=== PATIENT | female | born 1980 | race Caucasian/White ===

== ENCOUNTER 2017-03-02 06:13 | Day surgery (SDC) | payer BC ==
--- NOTE | 2017-02-26 08:35 | PDGENHP ---
History and Physical - Chief Complaint Left Hip Pain - History of Present Illness . ~~Bilateral~Hip Dyplasia (Right BL); Left more symptomatic 2. ~~History of bilateral hip arthroscopy 3. 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 She~lives in [place], [place]. 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 ~She~is ; she~has 4~children. ~Sally enjoys camping, fishing, and running. Yee's bilateral~hip pain (L>R)~started November 2015, with no~recalled trauma or injury, and with no~previous complaints.~Sallyhas~a known history of hip dysplasia. Left hip arthroscopy: January 312015 (Dr. Borjas in [place], [place]) Right hip arthroscopy: Jul 112015 In October 2016 she had a contrast MRI of left hip which apparently showed labral tear. (We do not have this study at this time) Presentation today is of~anterior, posterior bilateral~hip pain. ~The hip does~ wake her~at night and does~click and catch on her. Sitting can be uncomfortable~ for her. Sallydoes~report suffering from lower back pain episodes, history of sciolosis. Sallyhas~participated in physical therapy and has~tried other conservative measures including cortisone hip injections (worked for 20 minutes only) . She~ has not~received sufficient symptomatic improvement. Sallyhas~utilized medication for pain management, including NSAID and Vicodin. Sallyhas used medication for since the pain started. Sallyunderstands that she~has a hip and pelvis problem which should be researched and wishes to get a better understanding of her~hip status, followed by an establishment of a treatment strategy, hoping sheLaurawould be able to get back to her~well being active life. History: Past medical history: ~ scioliosis Relevant familial history: Older sister was born with hip dysplasia ~~~~~~~~~~~~~~~~~~~~~~~~~~~~~~~~~~~~Older sister with scioliosis Past surgical history: No. Surgery Anesthesia 1 Tubal ligation general 2 Hip arthroscopies x2 General Yee~denies problematic issues with general anesthesia in the past. I have reviewed, verified and agree with the past medical, surgical, family and social history. Current Medications:~currently has no medications in their medication list. ALLERGIES:~has No Known Allergies. Objective: Physical Examination: Sallyis 5~feet 7~inches tall and weighs~116~Lbs. Sallyis AAO x3; she~is well- nourished, in NAD. Skin is warm and dry. ~Breathing is non-labored. ~CV with RRR by pulse. Abdomen is soft, NTND. Currently, she~walks with a abnormal antalgic gait favoring the right side. Trendelenburg sign is positive bilaterally and proprioception~is was not taken secondary to increased pain. She~presents~with no~signs of joint laxity.~Beightons Score: 0 She~is fit looking. ~~ Lower spine examination is negative~for sciatic or femoral nerve irritation with negative~SLR &~femoral stretch tests. Range of motion of the spine is normal~for flexion, extension, and rotations, with no~associated pain. Strength, Sensation and pulses are normal - bilaterally Ankles and knees exams are normal~and no~mal-alignment is evident. She~has~right~.5~cm short leg length discrepancy. Thigh circumference is symmetric~with intermediate~muscle atrophy~on left~side. Hip ROM (degrees): FL ER At 90~hip FL IR At 90~hip FL AB AD EX IR Neutral hip ER Neutral hip R 110 (pain) 45 (pain) 35 (pain) 40 (pain) 10 5 ~(pain) 50 30 L 110 ~(pain) 50 ~(pain) 40 (pain) 35 ~(pain) 10 5 (pain) 60 20 Specific hip and pelvis tests: Quadrant LUZ Roll Add. Longus R +++ +++ negative Negative L +++ +++ +++ Negative Glut. Med ITB Pos. Imp R Negative 5/5 strength Negative 5/5 strength Negative L +++ 4+/5 strength Negative 5/5 strength Negative Squeeze test measured normal Bony Symphysis pubis is pain free~to touch while concentric activity of the rectus abdominis, does not~produce pain at its insertion. Ilio Psos specific tests are negative for pain during cycling for both hips~ without snap bilaterally HF has no pain but is weak bilaterally Left lateral~capsule tenderness Greater trochanteric burse is pain free~on both hips. Piriformis tests: FAIR is negative, with no~local signs of neuritis related to sciatic nerve. SIJs examination is produces pain on left side. Unable to assess~LUZ for SIJ pain secondary to pain. Hamstrings tests are negative~functional contraction and negative~tendinopathy both hips~(weak) On a daily basis, the following percentages reflect Yee's overall total pain: Deep hip: 80% SIJ 15%: Lateral Capsule 5% Imaging: Radiology studies which I~have personally reviewed, analyzed and measured are below: XR: AP of the hip and pelvis: Performed in a good~technique Coccyx to pubic symphysis distance 3.5~cm. 0 degrees [place]~Lines are preserved. Minimal~Pathological signs are seen in the Symphysis Pubis. Minimal~Pathological signs are seen at the Ischial~tuberosity. ~ Specific measurements show: NSA~ LCE Sourcil~Angle Sharp's angle Lat. Cam Lat. Pincer C.Over~sign Head~Coverage % ATDmm R N 25 2 41 - - 12-2 79 N L N 18 7 43 - - 12-2 67 N Pos. wall sign ISS NAD ~~Dysplasia Comments R Negative Negative 11.2~mm + L ++ + 8.0~mm ++ Sclerosis Sup. Lat. OA Cysts Joint Space-WBZ Joint Space-Medial R Negative Negative Negative 3.6~mm 3.3~mm L Negative Negative Negative 3.4~mm 4.0~mm X Table lateral: Anterior cam lesion is not seen~on both hips. Alpha Angle: ~ Right 42~dergrees Left 46~degrees CT: Right hip: Lateral center edge angle: 25 degrees Anterior center edge angle: 62 degrees [place] acetabular version angle: 15 degrees anteverted. Cranial acetabular version angle: 0 degrees . 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 Cranial acetabular version angle: 3 degrees retroverted. Femoral neck shaft angle: 134 degrees Femoral shaft torsion angle: Medialized 28 degrees Impression and plan:~ Sallyis a 36 y.o.~active female~suffering from symptomatic bilateral~hip pain due to Bilateral~Hip Dyplasia~causing significant disability to her~and altering ~her~sport and life activities. Physical examination, imaging, and her~story correspond with the diagnosis mentioned above. I explained that hip dysplasia is a condition wherein the hip joint has excessive play~and instability due to a variety of factors, including the depth and adequacy of the socket, the orientation of the femur bone, and ligament laxity around the hip joint. Dysplasia ranges in severity from borderline to citlaly, with treatment options being specific to the specific nature of the problem. Left untreated, the instability in the hip joint can cause progressive tearing of the labrum and deterioration of the surface cartilage, ultimately resulting in progressive osteoarthritis of the hip. I explained that femoroacetabular impingement (LENNOX - Cam type) arises due to a bony or soft tissue conflict between the femur (ball) and acetabulum (socket) caused by an abnormality in the shape of the femoral head and neck. Over time, repetitive impingement can result in damage to the labrum and adjacent surface cartilage within the socket, ultimately giving rise to progressive osteoarthritis of the hip. I explained that although a labral tear can be a source of pain, it is rarely the root of the problem and typically occurs secondary to an underlying abnormality in the shape and mechanics of the hip joint. I reviewed conservative treatment options for Dysplasia and LENNOX including activity modification to avoid positions of impingement or instability, physical therapy, non-steroidal anti-inflammatory medications, and various injections (corticosteroid and PRP) aimed at reducing inflammation in the hip joint or/and preventing dynamic instability and impingement. PRP injections may promote healing and reduce symptoms in certain cases but it will not repair chronically damaged tissue. Although these measures may help to buy time~and reduce current level of symptoms, they are not a definitive solution to the problem given the underlying abnormality in the shape of the hip joint. Patients who have failed conservative management and continue to experience symptoms are candidates for definitive surgical treatment, which may consist of hip arthroscopy alone or in combination with more invasive bony realignment procedures of the hip socket and/or femur called periacetabular osteotomy (REINALDO) or derotational femoral osteotomy (DFO). Hip arthroscopy typically includes treating the labrum with either repair or reconstruction of the torn labrum; as well as addressing the underlying abnormalities by restoring the normal shape to the hip joint. If the cartilage is damaged a Microfracture surgical procedure may also be necessary to help stimulate the growth of fibrocartilage. If a patient requires a labral reconstruction or a Microfracture, the initial rehabilitation from the surgery may take longer, but the petroleum terminal plant operator results are typically favorable. I reviewed the technical aspects of periacetabular osteotomy (REINALDO) including risks, benefits, and expected course of recovery. Yee~understands that REINALDO is an inpatient procedure carried out through two medium sized incisions on the front and back of the hip joint. The hip socket is cut, realigned, and stabilized with 2 ~3 internal screws. Risks include infection, bleeding, injury to nearby nerves or vessels, stiffness, persistent pain, instability, failure of bony healing, implant related complications, and venous thromboembolic disease. Rarely, revision surgery may be required to address these problems. Risks, potential complications, side effects and recovery from surgical procedure were discussed in length. We explained how this surgery is an open procedure, and though patients tend to do well in the long-term, it involves significant pain in the first 2-4 weeks post-op and a rather lengthy rehab.~Overall recovery takes approximately 6 ~12~months depending on the extent of damage and degree of repair. Yee~understands that she~will undergo hip arthroscopy 1 week prior to the REINALDO to address damage inside the hip joint. Yee~understands that hip arthroscopy and REINALDO are two separate procedures that are best performed one week apart, with the arthroscopy commencing first to "tighten up" any pathology evident in the hip joint (labral repair, etc.) and the REINALDO open procedure occurring 7-10 days later to realign the acetabulum. Yee~will review the info presented. In order to obtain more detailed information regarding the alignment, orientation, and shape of the bony hip and pelvis I will order a CT scan to be performed. The results of the CT scan, including femoral torsion and acetabular version measured values and 3D images, will aid me in deciding on the best treatment strategy and surgical pre-planning. In order to better evaluate the soft tissues and cartilage of the hip joint, I will order an MRI scan. Yee~will contact us if she~wishes to pursue further treatment in the future. Sallyis happy with this plan. I have also supplied her~with handouts, outlining the expected surgical treatment and rehab involved. I wish~Sallyall the best, ~~ ANSON Garcia History Information - Allergies/Home Medication List Allergies/Adverse Reactions: No Known Allergies Allergy (Unverified 01/30/17 10:07) Home Medications: Cholecalciferol Vit D3 [Vitamin D3 (*)] 1,000 units PO DAILY 01/30/17 [Last Taken Unknown] Herbals/Supplements -Info Only 1 ea PO DAILY 01/30/17 [Last Taken Unknown] Hydrocodone/Acetaminophen [[place] 5/325 (*)] 1 each PO Q4-6PRN PRN 01/30/17 [ Last Taken Unknown] Multivitamins [Multivitamin (*)] 1 each PO DAILY 01/30/17 [Last Taken Unknown] I have personally reviewed and updated: medical history - Social History Smoking Status: Never smoked
[~2017-03-02 06:13] MED LIST: ACETAMINOPHEN 500 MG TAB PO ONE; PREGABALIN 150 MG CAP PO ONE; ceFAZolin 2 GM/DEXTROSE 100 ML IV ONE
[2017-03-02] MEDS ORDERED: LIDOCAINE 1% 2 ML INJ ID PRN (06:55)
[2017-03-02] MEDS ORDERED: LR 1,000 ML IV ONE (06:55)
[2017-03-02] MEDS ORDERED: BUPIVACAINE/EPI 0.25% 30 ML SDV ONE (07:19)
[2017-03-02] MEDS ORDERED: MIDAZOLAM 2 MG/2 ML VIAL IVP ONE (07:46)
--- NOTE | 2017-03-02 07:47 | PDANEPAE ---
ANE Past Medical History - Cardiovascular History Hx Hypertension: No Hx Arrhythmias: No Hx Chest Pain: No Hx Coronary Artery / Peripheral Vascular Disease: No Hx CHF / Valvular Disease: No Hx Palpitations: No - Pulmonary History Hx COPD: No Hx Asthma/Reactive Airway Disease: No Hx Recent Upper Respiratory Infection: No Hx Oxygen in Use at Home: No Hx Sleep Apnea: No Sleep Apnea Screening Result - Last Documented: Negative - Neurologic History Hx Cerebrovascular Accident: No Hx Seizures: No Hx Dementia: No Neurologic History Comment: migraines - Endocrine History Hx Diabetes: No Hypothyroid: No Hyperthyroid: No Obesity: no - Renal History Hx Renal Disorders: No - Liver History Hx Hepatic Disorders: No - Neurological & Psychiatric Hx Hx Neurological and Psychiatric Disorders: No Neurological / Psychiatric History Comment: scoloisis. back pain due to bilat hip pain - Cancer History Hx Cancer: No - Congenital Disorder History Hx Congenital Disorders: No - GI History Hx Gastrointestinal Disorders: No - Other Health History Other Health History: labral tears. Bilat hip impingement. - Chronic Pain History Chronic Pain: No - Surgical History Prior Surgeries: T.L. 2012. L hip labrum sx . R hip 07-11-2016 ANE Review of Systems - Exercise capacity METS (RN): 4 METS ANE Patient History - Allergies Allergies/Adverse Reactions: No Known Allergies Allergy (Unverified 01/30/17 10:07) - Home Medications Home Medications: Cholecalciferol Vit D3 [Vitamin D3 (*)] 1,000 units PO DAILY 01/30/17 [Last Taken 3 Weeks Ago] Herbals/Supplements -Info Only 1 ea PO DAILY 01/30/17 [Last Taken 3 Weeks Ago] Hydrocodone/Acetaminophen [[place] 5/325 (*)] 1 each PO Q4-6PRN PRN 01/30/17 [ Last Taken 1 Day Ago] Multivitamins [Multivitamin (*)] 1 each PO DAILY 01/30/17 [Last Taken 3 Weeks Ago] - NPO status NPO Since - Liquids (Date): 03/01/17 NPO Since - Liquids (Time): 18:00 NPO Since - Solids (Date): 03/01/17 NPO Since - Solids (Time): 18:00 - Smoking Hx Smoking Status: Never smoked ANE Labs/Vital Signs - Vital Signs Blood Pressure: 106/56 Heart Rate: 69 Respiratory Rate: 18 O2 Sat (%): 97 Height: 171.45 cm Weight: 52.617 kg ANE Physical Exam - Airway Neck exam: FROM Mallampati Score: Class 1 Mouth exam: normal dental/mouth exam - Pulmonary Pulmonary: no respiratory distress - Cardiovascular Cardiovascular: regular rate and rhythym - ASA Status ASA Status: I ANE Anesthesia Plan Anesthesia Plan: general endotracheal anesthesia
[2017-03-02] MEDS ORDERED: PROPOFOL/EMULSION 500 MG/50 ML BOTTLE IV ONE (08:34)
[2017-03-02] MEDS ORDERED: fentaNYL 100 MCG/2 ML INJ ONE ×4 (08:55→12:24)
[2017-03-02] MEDS ORDERED: HYDROmorphONE/DILAUDID 2 MG/ML INJ ONE (11:00)
[2017-03-02] MEDS ORDERED: HYDROmorphONE/DILAUDID 1 MG/ML SYR ONE ×2 (12:14→12:24)
[2017-03-02] MEDS ORDERED: PROMETHAZINE HCL 25 MG/ML INJ IVP PRN (12:15)
[2017-03-02] MEDS ORDERED: HYDROCODONE/APAP 5/325 TAB PO PRN (12:15)
[2017-03-02] MEDS ORDERED: LR 500 ML IV PRN (12:15)
[2017-03-02] MEDS ORDERED: NALOXONE HCL 0.4 MG/ML INJ IVP PRN (12:15)
[2017-03-02] MEDS: HYDROmorphONE/DILAUDID 1 MG/ML SYR IVP PRN ×3 (12:17→12:34)
[2017-03-02] MEDS: fentaNYL 100 MCG/2 ML INJ IVP PRN ×3 (12:17→12:29)
[2017-03-02 12:22] VITALS: PULSE 107; O2SAT 100
[2017-03-02] MEDS ORDERED: PROMETHAZINE HCL 25 MG/ML INJ ONE (12:24)
--- NOTE | 2017-03-02 12:28 | POSTANESTH ---
Post Anesthetic Evaluation Cardiovascular Status: Normal, Stable Respiratory Status: Normal, Stable Level of Consciousness/Mental Status: Can Participate in Eval Pain Control: Inadeq, Add Tx Required Nausea/Vomiting Control: Adequate, Prn Tx Ordered Complications Possibly Related to Anesthesia: None Noted
[2017-03-02] MEDS ORDERED: DIAZEPAM 10 MG/2 ML SYR ONE (12:32)
[2017-03-02 12:56] VITALS: TEMP 97.5
[2017-03-02] MEDS ORDERED: DIAZEPAM 10 MG/2 ML SYR IVP PRN (13:24)
[2017-03-02 13:33] VITALS: RESP 10
[2017-03-02] MEDS ORDERED: HYDROCODONE/APAP 5/325 TAB ONE (13:58)
[2017-03-02 17:00] VITALS: BP 115/61
== END 2017-03-02 17:00 | disposition home or self-care (01) ==
LOC: FSGY 06:13
PROVIDERS: ATTEND Orthopaedic Surgery Sports Medicine
PROC: 0SQB4ZZ Repair Left Hip Joint, Percutaneous Endoscopic Approach (ICD-10-PCS; principal; 2017-03-02 08:15)
DX: M25.852 Other specified joint disorders, left hip (principal); Q65.89 Other specified congenital deformities of hip
CPT/HCPCS: 29914; 29916; 76001; C1769; C1713; J0171; J0690; J1170; J2250; J2550; J2704; J3010

== ENCOUNTER 2017-03-09 05:30 | Inpatient (IN) | payer BC ==
--- NOTE | 2017-03-05 09:45 | PDGENHP ---
History and Physical - Chief Complaint Left Hip Pain - History of Present Illness 1. ~~Bilateral~Hip Dyplasia (Right BL); Left more symptomatic 2. ~~History of bilateral hip arthroscopy 3. 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 She~lives in [place], [place]. 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 ~She~is ; she~has 4~children. ~Sally enjoys camping, fishing, and running. Yee's bilateral~hip pain (L>R)~started November 2015, with no~recalled trauma or injury, and with no~previous complaints.~Sallyhas~a known history of hip dysplasia. Left hip arthroscopy: January [id number] (Dr. Borjas in [place], [place]) Right hip arthroscopy: Jul 112015 In October 2016 she had a contrast MRI of left hip which apparently showed labral tear. (We do not have this study at this time) Presentation today is of~anterior, posterior bilateral~hip pain. ~The hip does~ wake her~at night and does~click and catch on her. Sitting can be uncomfortable~ for her. Sallydoes~report suffering from lower back pain episodes, history of sciolosis. Sallyhas~participated in physical therapy and has~tried other conservative measures including cortisone hip injections (worked for 20 minutes only) . She~ has not~received sufficient symptomatic improvement. Sallyhas~utilized medication for pain management, including NSAID and Vicodin. Sallyhas used medication for since the pain started. Sallyunderstands that she~has a hip and pelvis problem which should be researched and wishes to get a better understanding of her~hip status, followed by an establishment of a treatment strategy, hoping sheLaurawould be able to get back to her~well being active life. History: Past medical history: ~ scioliosis Relevant familial history: Older sister was born with hip dysplasia ~~~~~~~~~~~~~~~~~~~~~~~~~~~~~~~~~~~~Older sister with scioliosis Past surgical history: No. Surgery Anesthesia 1 Tubal ligation general 2 Hip arthroscopies x2 General Yee~denies problematic issues with general anesthesia in the past. I have reviewed, verified and agree with the past medical, surgical, family and social history. Current Medications:~currently has no medications in their medication list. ALLERGIES:~has No Known Allergies. Objective: Physical Examination: Sallyis 5~feet 7~inches tall and weighs~116~Lbs. Sallyis AAO x3; she~is well- nourished, in NAD. Skin is warm and dry. ~Breathing is non-labored. ~CV with RRR by pulse. Abdomen is soft, NTND. Currently, she~walks with a abnormal antalgic gait favoring the right side. Trendelenburg sign is positive bilaterally and proprioception~is was not taken secondary to increased pain. She~presents~with no~signs of joint laxity.~Beightons Score: 0 She~is fit looking. ~~ Lower spine examination is negative~for sciatic or femoral nerve irritation with negative~SLR &~femoral stretch tests. Range of motion of the spine is normal~for flexion, extension, and rotations, with no~associated pain. Strength, Sensation and pulses are normal - bilaterally Ankles and knees exams are normal~and no~mal-alignment is evident. She~has~right~.5~cm short leg length discrepancy. Thigh circumference is symmetric~with intermediate~muscle atrophy~on left~side. Hip ROM (degrees): FL ER At 90~hip FL IR At 90~hip FL AB AD EX IR Neutral hip ER Neutral hip R 110 (pain) 45 (pain) 35 (pain) 40 (pain) 10 5 ~(pain) 50 30 L 110 ~(pain) 50 ~(pain) 40 (pain) 35 ~(pain) 10 5 (pain) 60 20 Specific hip and pelvis tests: Quadrant LUZ Roll Add. Longus R +++ +++ negative Negative L +++ +++ +++ Negative Glut. Med ITB Pos. Imp R Negative 5/5 strength Negative 5/5 strength Negative L +++ 4+/5 strength Negative 5/5 strength Negative Squeeze test measured normal Bony Symphysis pubis is pain free~to touch while concentric activity of the rectus abdominis, does not~produce pain at its insertion. Ilio Psos specific tests are negative for pain during cycling for both hips~ without snap bilaterally HF has no pain but is weak bilaterally Left lateral~capsule tenderness Greater trochanteric burse is pain free~on both hips. Piriformis tests: FAIR is negative, with no~local signs of neuritis related to sciatic nerve. SIJs examination is produces pain on left side. Unable to assess~LUZ for SIJ pain secondary to pain. Hamstrings tests are negative~functional contraction and negative~tendinopathy both hips~(weak) On a daily basis, the following percentages reflect Yee's overall total pain: Deep hip: 80% SIJ 15%: Lateral Capsule 5% Imaging: Radiology studies which I~have personally reviewed, analyzed and measured are below: XR: AP of the hip and pelvis: Performed in a good~technique Coccyx to pubic symphysis distance 3.5~cm. 0 degrees [place]~Lines are preserved. Minimal~Pathological signs are seen in the Symphysis Pubis. Minimal~Pathological signs are seen at the Ischial~tuberosity. ~ Specific measurements show: NSA~ LCE Sourcil~Angle Sharp's angle Lat. Cam Lat. Pincer C.Over~sign Head~Coverage % ATDmm R N 25 2 41 - - 12-2 79 N L N 18 7 43 - - 12-2 67 N Pos. wall sign ISS NAD ~~Dysplasia Comments R Negative Negative 11.2~mm + L ++ + 8.0~mm ++ Sclerosis Sup. Lat. OA Cysts Joint Space-WBZ Joint Space-Medial R Negative Negative Negative 3.6~mm 3.3~mm L Negative Negative Negative 3.4~mm 4.0~mm X Table lateral: Anterior cam lesion is not seen~on both hips. Alpha Angle: ~ Right 42~dergrees Left 46~degrees CT: Right hip: Lateral center edge angle: 25 degrees Anterior center edge angle: 62 degrees [place] acetabular version angle: 15 degrees anteverted. Cranial acetabular version angle: 0 degrees . 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 Cranial acetabular version angle: 3 degrees retroverted. Femoral neck shaft angle: 134 degrees Femoral shaft torsion angle: Medialized 28 degrees Impression and plan:~ Sallyis a 36 y.o.~active female~suffering from symptomatic bilateral~hip pain due to Bilateral~Hip Dyplasia~causing significant disability to her~and altering ~her~sport and life activities. Physical examination, imaging, and her~story correspond with the diagnosis mentioned above. I explained that hip dysplasia is a condition wherein the hip joint has excessive play~and instability due to a variety of factors, including the depth and adequacy of the socket, the orientation of the femur bone, and ligament laxity around the hip joint. Dysplasia ranges in severity from borderline to citlaly, with treatment options being specific to the specific nature of the problem. Left untreated, the instability in the hip joint can cause progressive tearing of the labrum and deterioration of the surface cartilage, ultimately resulting in progressive osteoarthritis of the hip. I explained that femoroacetabular impingement (LENNOX - Cam type) arises due to a bony or soft tissue conflict between the femur (ball) and acetabulum (socket) caused by an abnormality in the shape of the femoral head and neck. Over time, repetitive impingement can result in damage to the labrum and adjacent surface cartilage within the socket, ultimately giving rise to progressive osteoarthritis of the hip. I explained that although a labral tear can be a source of pain, it is rarely the root of the problem and typically occurs secondary to an underlying abnormality in the shape and mechanics of the hip joint. I reviewed conservative treatment options for Dysplasia and LENNOX including activity modification to avoid positions of impingement or instability, physical therapy, non-steroidal anti-inflammatory medications, and various injections (corticosteroid and PRP) aimed at reducing inflammation in the hip joint or/and preventing dynamic instability and impingement. PRP injections may promote healing and reduce symptoms in certain cases but it will not repair chronically damaged tissue. Although these measures may help to buy time~and reduce current level of symptoms, they are not a definitive solution to the problem given the underlying abnormality in the shape of the hip joint. Patients who have failed conservative management and continue to experience symptoms are candidates for definitive surgical treatment, which may consist of hip arthroscopy alone or in combination with more invasive bony realignment procedures of the hip socket and/or femur called periacetabular osteotomy (REINALDO) or derotational femoral osteotomy (DFO). Hip arthroscopy typically includes treating the labrum with either repair or reconstruction of the torn labrum; as well as addressing the underlying abnormalities by restoring the normal shape to the hip joint. If the cartilage is damaged a Microfracture surgical procedure may also be necessary to help stimulate the growth of fibrocartilage. If a patient requires a labral reconstruction or a Microfracture, the initial rehabilitation from the surgery may take longer, but the intermodal dispatcher results are typically favorable. I reviewed the technical aspects of periacetabular osteotomy (REINALDO) including risks, benefits, and expected course of recovery. Yee~understands that REINALDO is an inpatient procedure carried out through two medium sized incisions on the front and back of the hip joint. The hip socket is cut, realigned, and stabilized with 2 ~3 internal screws. Risks include infection, bleeding, injury to nearby nerves or vessels, stiffness, persistent pain, instability, failure of bony healing, implant related complications, and venous thromboembolic disease. Rarely, revision surgery may be required to address these problems. Risks, potential complications, side effects and recovery from surgical procedure were discussed in length. We explained how this surgery is an open procedure, and though patients tend to do well in the long-term, it involves significant pain in the first 2-4 weeks post-op and a rather lengthy rehab.~Overall recovery takes approximately 6 ~12~months depending on the extent of damage and degree of repair. Yee~understands that she~will undergo hip arthroscopy 1 week prior to the REINALDO to address damage inside the hip joint. Yee~understands that hip arthroscopy and REINALDO are two separate procedures that are best performed one week apart, with the arthroscopy commencing first to "tighten up" any pathology evident in the hip joint (labral repair, etc.) and the REINALDO open procedure occurring 7-10 days later to realign the acetabulum. Yee~will review the info presented. In order to obtain more detailed information regarding the alignment, orientation, and shape of the bony hip and pelvis I will order a CT scan to be performed. The results of the CT scan, including femoral torsion and acetabular version measured values and 3D images, will aid me in deciding on the best treatment strategy and surgical pre-planning. In order to better evaluate the soft tissues and cartilage of the hip joint, I will order an MRI scan. Yee~will contact us if she~wishes to pursue further treatment in the future. Sallyis happy with this plan. I have also supplied her~with handouts, outlining the expected surgical treatment and rehab involved. I wish~Sallyall the best, ~~ ANSON Garcia History Information - Allergies/Home Medication List Allergies/Adverse Reactions: No Known Allergies Allergy (Unverified 01/30/17 10:07) Home Medications: Cholecalciferol Vit D3 [Vitamin D3 (*)] 1,000 units PO DAILY 01/30/17 [Last Taken 3 Weeks Ago] Herbals/Supplements -Info Only 1 ea PO DAILY 01/30/17 [Last Taken 3 Weeks Ago] Multivitamins [Multivitamin (*)] 1 each PO DAILY 01/30/17 [Last Taken 3 Weeks Ago] DIAZEPAM 03/04/17 [Last Taken Unknown] NAPROXEN SODIUM 03/04/17 [Last Taken Unknown] Percocet 5-325 mg Tablet 03/04/17 [Last Taken Unknown] I have personally reviewed and updated: medical history - Social History Smoking Status: Never smoked
[2017-03-09] MEDS ORDERED: TRANEXAMIC ACID 1,000 MG in NS 100 ML IV ONE (06:00)
[2017-03-09] MEDS ORDERED: SCOPOLAMINE HYDROBROMIDE 1.5 MG PATCH TD ONE (06:01)
[2017-03-09] MEDS ORDERED: PREGABALIN 150 MG CAP PO ONE (06:01)
[2017-03-09] MEDS ORDERED: ceFAZolin 2 GM/DEXTROSE 100 ML IV ONE (06:01)
[2017-03-09] MEDS ORDERED: ACETAMINOPHEN 500 MG TAB PO ONE (06:01)
[2017-03-09] MEDS ORDERED: LIDOCAINE 1% 2 ML INJ ID PRN (06:05)
[2017-03-09] MEDS ORDERED: LR 1,000 ML IV ONE (06:05)
[2017-03-09] MEDS ORDERED: LIDOCAINE 1% 2 ML INJ ONE (06:07)
[2017-03-09] MEDS ORDERED: PREGABALIN 50 MG CAP PO ONE (06:15)
[2017-03-09] MEDS ORDERED: CITRATE DEXTROSE SOLN 500 ML BAG ONE (06:39)
[2017-03-09] MEDS ORDERED: CALCIUM CHLORIDE 1 GM/10 ML INJ ONE (07:05)
[2017-03-09] MEDS ORDERED: THROMBIN (BOVINE) 5,000 UNIT VIAL TP ONE (07:05)
[2017-03-09] MEDS ORDERED: PROPOFOL/EMULSION 500 MG/50 ML BOTTLE IV ONE ×2 (07:10→08:56)
[2017-03-09] MEDS ORDERED: METOCLOPRAMIDE 10 MG/2 ML VIAL ONE (07:10)
[2017-03-09] MEDS ORDERED: ROCURONIUM 100 MG/10 ML VIAL ONE (07:10)
[2017-03-09] MEDS ORDERED: LIDOCAINE 2% 100 MG/5 ML SYR ONE (07:10)
[2017-03-09] MEDS ORDERED: DEXAMETHASONE 4 MG/ML VIAL ONE ×2 (07:10)
[2017-03-09] MEDS ORDERED: MIDAZOLAM 2 MG/2 ML VIAL ONE (07:11)
--- NOTE | 2017-03-09 08:22 | PDANEPAE ---
ANE Past Medical History - Cardiovascular History Hx Hypertension: No Hx Arrhythmias: No Hx Chest Pain: No Hx Coronary Artery / Peripheral Vascular Disease: No Hx CHF / Valvular Disease: No Hx Palpitations: No - Pulmonary History Hx COPD: No Hx Asthma/Reactive Airway Disease: No Hx Recent Upper Respiratory Infection: No Hx Oxygen in Use at Home: No Hx Sleep Apnea: No Sleep Apnea Screening Result - Last Documented: Negative - Neurologic History Hx Cerebrovascular Accident: No Hx Seizures: No Hx Dementia: No Neurologic History Comment: migraines - Endocrine History Hx Diabetes: No - Renal History Hx Renal Disorders: No - Liver History Hx Hepatic Disorders: No - Neurological & Psychiatric Hx Hx Neurological and Psychiatric Disorders: No Neurological / Psychiatric History Comment: scoloisis. back pain due to bilat hip pain - Cancer History Hx Cancer: No - Congenital Disorder History Hx Congenital Disorders: No - GI History Hx Gastrointestinal Disorders: No - Other Health History Other Health History: labral tears. Bilat hip impingement. - Chronic Pain History Chronic Pain: No - Surgical History Prior Surgeries: T.L. 2011. L hip labrum sx . R hip 07-11-2016 ANE Review of Systems - Exercise capacity METS (RN): 4 METS ANE Patient History - Allergies Allergies/Adverse Reactions: No Known Allergies Allergy (Unverified 01/30/17 10:07) - Home Medications Home Medications: Cholecalciferol Vit D3 [Vitamin D3 (*)] 1,000 units PO DAILY 01/30/17 [Last Taken 02/23/17] Herbals/Supplements -Info Only 1 ea PO DAILY 01/30/17 [Last Taken 02/23/17] Multivitamins [Multivitamin (*)] 1 each PO DAILY 01/30/17 [Last Taken 02/23/17] DIAZEPAM 03/04/17 [Last Taken 02/23/17] NAPROXEN SODIUM 03/04/17 [Last Taken 02/23/17] Percocet 5-325 mg Tablet 03/04/17 [Last Taken 02/23/17] - NPO status NPO Since - Liquids (Date): 03/08/17 NPO Since - Liquids (Time): 23:00 NPO Since - Solids (Date): 03/08/17 NPO Since - Solids (Time): 20:00 - Smoking Hx Smoking Status: Never smoked ANE Labs/Vital Signs - Vital Signs Blood Pressure: 103/67 Heart Rate: 60 Respiratory Rate: 20 O2 Sat (%): 95 Height: 171.45 cm Weight: 52.617 kg ANE Physical Exam - Airway Mallampati Score: Class 1 Mouth exam: normal dental/mouth exam - Pulmonary Pulmonary: no respiratory distress - Cardiovascular Cardiovascular: regular rate and rhythym - ASA Status ASA Status: I ANE Anesthesia Plan Anesthesia Plan: general endotracheal anesthesia, epidural (epidural placed in pre-op for POPM/PSR)
[2017-03-09] MEDS ORDERED: ONDANSETRON 4 MG/2 ML VIAL IVP PRN ×3 (09:49→12:48)
[2017-03-09] MEDS ORDERED: NARCOTIC DRIP BAG-TOTAL ALL TYPES EP PRN (09:49)
[2017-03-09] MEDS ORDERED: NALOXONE HCL 0.4 MG/ML INJ IVP PRN ×2 (09:49→12:12)
[2017-03-09] MEDS ORDERED: METOCLOPRAMIDE 10 MG/2 ML VIAL IVP PRN (09:49)
[2017-03-09] MEDS ORDERED: diphenhydrAMINE 25 MG CAP PO PRN (09:49)
[2017-03-09] MEDS ORDERED: GLYCOPYRROLATE 0.2 MG/1 ML VIAL ONE (10:47)
[2017-03-09] MEDS ORDERED: ceFAZolin 1 GM VIAL ONE (11:14)
[2017-03-09] MEDS ORDERED: MEPERIDINE 25 MG/ML SYR IVP PRN (12:12)
[2017-03-09] MEDS ORDERED: ACETAMINOPHEN 500 MG TAB PO PRN (12:12)
[2017-03-09] MEDS ORDERED: LR 500 ML IV PRN (12:12)
--- NOTE | 2017-03-09 12:14 | POSTANESTH ---
Post Anesthetic Evaluation Respiratory Status: Normal, Stable Level of Consciousness/Mental Status: Can Participate in Eval Pain Control: Adequate, Prn Tx Ordered Nausea/Vomiting Control: Adequate, Prn Tx Ordered Complications Possibly Related to Anesthesia: None Noted
[2017-03-09] MEDS ORDERED: MEPERIDINE 25 MG/ML SYR ONE (12:17)
[2017-03-09] MEDS ORDERED: fentaNYL 100 MCG/2 ML INJ ONE (12:17)
[2017-03-09] MEDS ORDERED: ceFAZolin 1 GM/5 ML SYR ONE (12:17)
[2017-03-09] MEDS: fentaNYL 100 MCG/2 ML INJ IVP PRN ×4 (12:20→13:05)
[2017-03-09] MEDS ORDERED: ONDANSETRON DISINTEGRATING 4 MG TAB PO PRN (12:48)
[2017-03-09] MEDS ORDERED: MAGNESIUM HYDROXIDE 30 ML UDCUP PO PRN (12:48)
[2017-03-09] MEDS ORDERED: LACTULOSE 20 GM/30 ML UDCUP PO PRN (12:48)
[2017-03-09] MEDS ORDERED: POLYETHYLENE GLYCOL 3350 17 GM PKT PO PRN (12:48)
[2017-03-09] MEDS ORDERED: BISACODYL 10 MG SUPP PR PRN (12:48)
[2017-03-09] MEDS ORDERED: KETOROLAC 15 MG/1 ML SDV ONE (13:04)
[2017-03-09] MEDS: KETOROLAC 15 MG/1 ML SDV IVP SCH ×2 (13:05→19:24)
[2017-03-09] MEDS ORDERED: NS 250 ML IV ONE ×2 (20:00→23:30)
[2017-03-09] MEDS ORDERED: NAPROXEN SODIUM 220 MG PO SCH (21:00)
--- NOTE | 2017-03-09 21:07 | SUROPNOTE ---
[facility] Operative Report - Surgery Surgery was performed in [facility] 03/09/17 Diagnosis: Left 1. Hip Acetabular Dysplasia Operation: Left~Roopa Acetabular Osteotomy (REINALDO) Surgeon: Jay Jay Gastelum MD Trimmer Loader:~~Jovani MCCAULEY Anesthetic: General + epidural Procedure: General anesthetic. Antibiotics given. Cell saver in use. Fluoroscopy. Phase 1: Position lateral, diagonal skin incision between ischial tuberosity and greater trochanter as for posterior hip approach. Blunt split of glut max fibers. Identification of fat pad overlying sciatic nerve. Exposure of sciatic nerve under fat pad, gently retracting it away-medially to ischial tuberosity. Exposure of subcotoloid fossa proximal to short rotators. Using osteotomes and under fluoroscopy, osteotomy of subcotoloid fossa to sciatic notch proximal to ischial spine. Closure of lateral cut. Patient is turned supine. Phase 2: Skin incision just distal to ASIS. Using diathermy the iliac spine was exposed and inguinal ligament + Sartorious were retracted medially, taking the LFCN with them, protecting it. Inner ilium was dissected from iliacus muscle bluntly , with a cob and swab. Dissection continued towards lateral superior ramus pubis. Using fluoroscopy an osteotomy of lateral superior ramus, just medial to tear drop, was performed with curved fish mouth osteotome. Phase 3: Osteotomy lines of the ilium were marked with diathermy as pre planned according to XR/CT and expected correction of acatabulum. 2 Shanz screws were drilled into central acetabular fragment, corresponding with planned correction angles, in order to mobilize central acetabular fragment after osteotomy is complete. ~Iliac osteotomy was performed with reciprocating saw and the main acetabular fragment was moved to realign weight bearing position. After confirmation of correction using fluoroscopy in AP and false profile planes, the fragment was fixed with 2 - 5.5mm ~full threaded~screws~and 1 - 4mm ~full threaded~screw. Inguinal ligament and Sartorious were attached back to ASIS through drill holes. Incision was closed according to soft tissue layers. Skin was closed with subdermal Monocryl. Final fluoro shots were obtained to confirm position/correction. After surgery Yee~moved both lower limbs and had no NV motor compromise. Evaluation under anesthesia: IR at 90 degrees hip flexion prior to REINALDO was 40~degrees and after REINALDO was 20~ degrees. Bleedin~cc into cell-saver, 270~of blood products were returned to patient. Post op instructions: 1. Non~weight bearing crutches for 6 weeks 2. Epidural analgesia for 24-48 hours 3. Continuous SCD 4. Aspirin 81 mg X1 day once Epidural is discontinued 5. Avoid hip flexion past 90 and hip External rotation. 6. PT according to my recommendations at follow up visit Kind regards, Dr. Jay Jay Gastelum
[2017-03-09] MEDS: NAPROXEN SODIUM 220 MG TAB PO SCH (21:13)
[2017-03-09] MEDS: SENNOSIDES/DOCUSATE SODIUM TAB PO SCH (21:14)
[2017-03-10] MEDS ORDERED: NS 250 ML IV PRN
[2017-03-10] MEDS: KETOROLAC 15 MG/1 ML SDV IVP SCH ×2 (00:35→05:55)
[2017-03-10] MEDS: HYDROmorph 10MCG/ML&BUP 0.0625% in 100ML NS EP SCH ×3 (04:02→21:36)
[2017-03-10 05:22] LABS: HEMATOCRIT 24.7 % (38.0-47.0); HEMOGLOBIN 8.5 g/dL (12.6-16.3); MEAN CELL HEMOGLOBIN 31.6 pg (27.9-34.1); MEAN CELL HEMOGLOBIN CONCENTR. 34.4 g/dL (32.4-36.7); MEAN CELL VOLUME 91.8 fL (81.5-99.8); RED BLOOD CELL COUNT 2.69 10^6/uL (4.18-5.33); RED CELL DISTRIBUTION WIDTH 12.6 % (11.5-15.2)
[2017-03-10 05:43] LABS: ANION GAP 6 mEq/L (8-16); CARBON DIOXIDE 23 mEq/l (22-31); CHLORIDE 103 mEq/L (97-110); CREATININE 0.7 mg/dL (0.6-1.0); GLOMERULAR FILTRATION RATE > 60; GLUCOSE 107 mg/dL (70-100); POTASSIUM 4.3 mEq/L (3.5-5.2); SODIUM 132 mEq/L (134-144)
[2017-03-10] MEDS ORDERED: NS 500 ML IV PRN (08:50)
[2017-03-10] MEDS: NAPROXEN SODIUM 220 MG TAB PO SCH ×2 (10:54→20:59)
[2017-03-10] MEDS: SENNOSIDES/DOCUSATE SODIUM TAB PO SCH ×2 (10:54→20:59)
[2017-03-10] MEDS: REGARDING ANTICOAG MISC SCH (11:09)
[2017-03-10] MEDS: DC NARCS MISC SCH (11:09)
--- NOTE | 2017-03-10 14:51 | SOAPPROG ---
SOAP Progress Note Assessment/Plan: Assessment:Pain well controlled with epidural Plan: 03/10/17 14:50 Continue current epidural infusion. Plan to stop infusion 8/9 AM and evaluate pain w/o epidural Objective: Vital Signs Temp Pulse Resp BP Pulse Ox 36.9 C 65 16 99/66 L 99 03/10/17 14:02 03/10/17 14:02 03/10/17 14:02 03/10/17 14:02 03/10/17 14:02 Laboratory Results 03/10/17 04:29 03/10/17 04:29 03/09/17 03/10/17 03/11/17 05:59 05:59 05:59 Intake Total 4210 750 Output Total 1165 900 Balance 3045 -150 ICD10 Worksheet Patient Problems: Problems Problem Status Onset Post-op pain Acute - ICD10 Problem Qualifiers (1) Post-op pain
[2017-03-11] MEDS: HYDROmorph 10MCG/ML&BUP 0.0625% in 100ML NS EP SCH (06:56)
[2017-03-11] MEDS: REGARDING ANTICOAG MISC SCH (08:01)
[2017-03-11] MEDS: DC NARCS MISC SCH (08:01)
[2017-03-11] MEDS: NAPROXEN SODIUM 220 MG TAB PO SCH ×2 (08:19→20:24)
[2017-03-11] MEDS: SENNOSIDES/DOCUSATE SODIUM TAB PO SCH ×2 (08:22→20:24)
[2017-03-11] MEDS: DIAZEPAM 2 MG TAB PO PRN ×2 (14:01→20:24)
[2017-03-11] MEDS: oxyCODONE IR 5 MG TAB PO PRN ×2 (14:02→16:17)
[2017-03-11] MEDS: ASPIRIN EC 81 MG TAB PO SCH (14:02)
--- NOTE | 2017-03-11 15:11 | SOAPPROG ---
SOAP Progress Note Assessment/Plan: Assessment:Pain well controlled with epidural Pain controlled, Plan: 03/10/17 14:50 Continue current epidural infusion. Plan to stop infusion 8/9 AM and evaluate pain w/o epidural 03/11/17 15:09 Epidural infusion turned off, will attempt to transition to PO pain medication. Leave epidural catheter in place if unable to control pain without infusion. Objective: Vital Signs Temp Pulse Resp BP Pulse Ox 36.9 C 79 15 104/56 L 96 03/11/17 14:00 03/11/17 14:00 03/11/17 14:00 03/11/17 14:00 03/11/17 14:00 Laboratory Results 03/10/17 04:29 03/10/17 04:29 03/10/17 03/11/17 03/12/17 05:59 05:59 05:59 Intake Total 4210 3250 Output Total 1165 3500 350 Balance 3045 -250 -350 ICD10 Worksheet Patient Problems: Problems Problem Status Onset Post-op pain Acute - ICD10 Problem Qualifiers (1) Post-op pain
--- NOTE | 2017-03-11 17:05 | SOAPPROG ---
KELSI Progress Note Assessment/Plan: Assessment: 2nd post op day Left Periacetabular Osteotomy Plan: transition to oral analgesics: Oxycodone 10-20mg Q4hrs scheduled Dilaudid 0.2mg Q2hrs PRN breakthrough up with PT/OT Pelvis Xray tomorrow home in 2-3 days 03/11/17 17:02 Subjective: Yee is doing well this afternoon. Her epidural was turned off earlier today and is now taking Oxycodone. Her BP and HR were low yesterday but without epidural in her vitals are normalizing. She denies cp, sob, or nausea. Plan is to have epidural withdrawn tomorrow, Zhang soon thereafter. Objective: Vital Signs Temp Pulse Resp BP Pulse Ox 36.9 C 79 15 104/56 L 96 03/11/17 14:00 03/11/17 14:00 03/11/17 14:00 03/11/17 14:00 03/11/17 14:00 Laboratory Results 03/10/17 04:29 03/10/17 04:29 03/10/17 03/11/17 03/12/17 05:59 05:59 05:59 Intake Total 4210 3250 Output Total 1165 3500 2450 Balance 3045 -250 -2450 Well appearing in NAD Left Hip dressings clean dry intact NVI distally Full ROM of foot and ankle ICD10 Worksheet Patient Problems: Problems Problem Status Onset Post-op pain Acute
[2017-03-11] MEDS: oxyCODONE IR 5 MG TAB PO SCH ×3 (17:40→23:59)
[2017-03-11] MEDS: ACETAMINOPHEN 325 MG TAB PO PRN (23:59)
[2017-03-12] MEDS: HYDROmorphONE/DILAUDID 1 MG/ML SYR IVP PRN ×3 (00:04→23:01)
[2017-03-12] MEDS: DIAZEPAM 2 MG TAB PO PRN ×3 (02:44→20:17)
[2017-03-12] MEDS: oxyCODONE IR 5 MG TAB PO SCH ×5 (04:46→20:18)
[2017-03-12] MEDS: NAPROXEN SODIUM 220 MG TAB PO SCH ×2 (08:27→20:17)
[2017-03-12] MEDS: ASPIRIN EC 81 MG TAB PO SCH (08:27)
[2017-03-12] MEDS: SENNOSIDES/DOCUSATE SODIUM TAB PO SCH ×2 (08:28→20:18)
--- NOTE | 2017-03-12 08:52 | SOAPPROG ---
SOAP Progress Note Assessment/Plan: Assessment: Plan: 03/12/17 08:51 Saw patient POD 0 and 1. Doing very well, pain is almost none with epidural. NV intact. Planned on epi out POD2/3. Dr Gastelum Objective: Vital Signs Temp Pulse Resp BP Pulse Ox 36.7 C 63 13 96/60 L 98 03/12/17 07:53 03/12/17 07:53 03/12/17 07:53 03/12/17 07:53 03/12/17 07:53 Laboratory Results 03/10/17 04:29 03/10/17 04:29 03/11/17 03/12/17 03/13/17 05:59 05:59 05:59 Intake Total 3250 1600 Output Total 3500 2889 Arxdhgt -827 -8038 ICD10 Worksheet Patient Problems: Problems Problem Status Onset Post-op pain Acute
[2017-03-12] MEDS: REGARDING ANTICOAG MISC SCH (10:25)
[2017-03-12] MEDS: DC NARCS MISC SCH (10:25)
--- NOTE | 2017-03-12 11:27 | SOAPPROG ---
SOAP Progress Note Assessment/Plan: Assessment:Pain well controlled with epidural Pain controlled, Good pain control with PO/IV medication. Epidurl infusion off 24 hours. Plan: 03/10/17 14:50 Continue current epidural infusion. Plan to stop infusion 8/9 AM and evaluate pain w/o epidural 03/11/17 15:09 Epidural infusion turned off, will attempt to transition to PO pain medication. Leave epidural catheter in place if unable to control pain without infusion. 03/12/17 11:25 Epidural cath removed tip intact. Objective: Vital Signs Temp Pulse Resp BP Pulse Ox 36.7 C 63 13 96/60 L 98 03/12/17 07:53 03/12/17 07:53 03/12/17 07:53 03/12/17 07:53 03/12/17 07:53 Laboratory Results 03/10/17 04:29 03/10/17 04:29 03/11/17 03/12/17 03/13/17 05:59 05:59 05:59 Intake Total 3250 1600 Output Total 3500 6350 550 Balance -250 -4750 -550 ICD10 Worksheet Patient Problems: Problems Problem Status Onset Post-op pain Acute - ICD10 Problem Qualifiers (1) Post-op pain
--- NOTE | 2017-03-12 20:20 | SOAPPROG ---
SOAP Progress Note Assessment/Plan: Assessment: Plan: 03/12/17 08:51 Saw patient POD 0 and 1. Doing very well, pain is almost none with epidural. NV intact. Planned on epi out POD2/3. Dr Gastelum 03/12/17 20:18 POD 3 - Epi and folly out, pain well controlled, Xr shows good unchanged alignment. NV intact. no complaints. Will be ready for discharge in the next day/two. Dr Gastelum Objective: Vital Signs Temp Pulse Resp BP Pulse Ox 36.7 C 76 18 99/60 L 99 03/12/17 19:47 03/12/17 19:47 03/12/17 19:47 03/12/17 19:47 03/12/17 19:47 Laboratory Results 03/10/17 04:29 03/10/17 04:29 03/11/17 03/12/17 03/13/17 05:59 05:59 05:59 Intake Total 3250 1600 Output Total 3500 1396 550 Kgabsvz -718 -7680 -550 ICD10 Worksheet Patient Problems: Problems Problem Status Onset Post-op pain Acute
[2017-03-12] MEDS: ACETAMINOPHEN 325 MG TAB PO PRN (23:01)
[2017-03-13] MEDS: oxyCODONE IR 5 MG TAB PO SCH ×5 (00:50→16:05)
[2017-03-13] MEDS: DIAZEPAM 2 MG TAB PO PRN ×2 (05:05→13:14)
[2017-03-13 08:14] VITALS: RESP 14
[2017-03-13] MEDS: NAPROXEN SODIUM 220 MG TAB PO SCH (09:16)
[2017-03-13] MEDS: SENNOSIDES/DOCUSATE SODIUM TAB PO SCH (09:16)
[2017-03-13] MEDS: ASPIRIN EC 81 MG TAB PO SCH (09:16)
[2017-03-13] MEDS: REGARDING ANTICOAG MISC SCH (10:09)
[2017-03-13] MEDS: DC NARCS MISC SCH (10:09)
[2017-03-13 11:28] VITALS: TEMP 98.6
[2017-03-13 15:26] VITALS: BP 114/70; PULSE 74; O2SAT 99
== END 2017-03-13 17:12 | disposition home or self-care (01) | DRG 482 ==
LOC: F3N 05:30
PROVIDERS: ADMIT Orthopaedic Surgery Sports Medicine; ATTEND Orthopaedic Surgery Sports Medicine
PROC: 0Q830ZZ Division of Left Pelvic Bone, Open Approach (ICD-10-PCS; principal; 2017-03-09 07:15)
PROC: BQ111ZZ Fluoroscopy of Left Hip using Low Osmolar Contrast (ICD-10-PCS; principal; 2017-03-09 07:15)
PROC: 0SSB04Z Reposition Left Hip Joint with Internal Fixation Device, Open Approach (ICD-10-PCS; principal; 2017-03-09 07:15)
DX: Q65.89 Other specified congenital deformities of hip (principal); M24.151 Other articular cartilage disorders, right hip; M24.152 Other articular cartilage disorders, left hip
CPT/HCPCS: 97116-GP; 97161-GP; 97166-GO; 97530-GP; 97535-GO; C1713; J0690; J1100; J1170; J1885; J2001; J2250; J2704; J2765; J3010; J7060

== ENCOUNTER 2017-08-24 06:24 | Day surgery (SDC) | payer BC ==
--- NOTE | 2017-08-23 20:41 | PDGENHP ---
History and Physical - Chief Complaint Right Hip Pain - History of Present Illness Diagnosis: 1. ~~Bilateral~Hip Dyplasia (Right BL); Left more symptomatic 2. ~~History of bilateral hip arthroscopy 3. 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 I have enjoyed meeting her. She~lives in [place], [place]. 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 ~She~is ; she~has 4~children. ~Sally enjoys camping, fishing, and running. Yee's bilateral~hip pain (L>R)~started November 2015, with no~recalled trauma or injury, and with no~previous complaints. Sallyhas~a known history of hip dysplasia. Left hip arthroscopy: January 312015 (Dr. Borjas in [place], [place]) Right hip arthroscopy: Jul 112015 In October 2016 she had a contrast MRI of left hip which apparently showed labral tear. (We do not have this study at this time) Presentation today is of anterior, posterior bilateral~hip pain. ~The hip does~ wake her~at night and does~click and catch on her. Sitting can be uncomfortable~ for her. Sallydoes~report suffering from lower back pain episodes, history of sciolosis. Sallyhas~participated in physical therapy and has~tried other conservative measures including cortisone hip injections (worked for 20 minutes only) . She~ has not~received sufficient symptomatic improvement. Sallyhas~utilized medication for pain management, including NSAID and Vicodin. Sallyhas used medication for since the pain started. Sallyunderstands that she~has a hip and pelvis problem which should be researched and wishes to get a better understanding of her~hip status, followed by an establishment of a treatment strategy, hoping sheLaurawould be able to get back to her~well being active life. History: Past medical history: ~ scioliosis Relevant familial history: Older sister was born with hip dysplasia ~~~~~~~~~~~~~~~~~~~~~~~~~~~~~~~~~~~~Older sister with scioliosis Past surgical history: No. Surgery Anesthesia 1 Tubal ligation general 2 Hip arthroscopies x2 General Sallydenies problematic issues with general anesthesia in the past. I have reviewed, verified and agree with the past medical, surgical, family and social history. Current Medications:~currently has no medications in their medication list. ALLERGIES:~has No Known Allergies. Objective: Physical Examination: Sallyis 5~feet 7~inches tall and weighs 116~Lbs. Sallyis AAO x3; she~is well- nourished, in NAD. Skin is warm and dry. ~Breathing is non-labored. ~CV with RRR by pulse. Abdomen is soft, NTND. Currently, she~walks with a abnormal antalgic gait favoring the right side. Trendelenburg sign is positive bilaterally and proprioception is was not taken secondary to increased pain. She~presents with no~signs of joint laxity. Beightons Score: 0 She~is fit looking. ~~ Lower spine examination is negative~for sciatic or femoral nerve irritation with negative~SLR &~femoral stretch tests. Range of motion of the spine is normal~for flexion, extension, and rotations, with no~associated pain. Strength, Sensation and pulses are normal - bilaterally Ankles and knees exams are normal~and no~mal-alignment is evident. She~has~right~.5~cm short leg length discrepancy. Thigh circumference is symmetric~with intermediate~muscle atrophy~on left~side. Hip ROM (degrees): FL ER At 90~hip FL IR At 90~hip FL AB AD EX IR Neutral hip ER Neutral hip R 110 (pain) 45 (pain) 35 (pain) 40 (pain) 10 5 ~(pain) 50 30 L 110 ~(pain) 50 ~(pain) 40 (pain) 35 ~(pain) 10 5 (pain) 60 20 Specific hip and pelvis tests: Quadrant LUZ Roll Add. Longus R +++ +++ negative Negative L +++ +++ +++ Negative Glut. Med ITB Pos. Imp R Negative 5/5 strength Negative 5/5 strength Negative L +++ 4+/5 strength Negative 5/5 strength Negative Squeeze test measured normal Bony Symphysis pubis is pain free~to touch while concentric activity of the rectus abdominis, does not~produce pain at its insertion. Ilio Psos specific tests are negative for pain during cycling for both hips~ without snap bilaterally HF has no pain but is weak bilaterally Left lateral~capsule tenderness Greater trochanteric burse is pain free~on both hips. Piriformis tests: FAIR is negative, with no~local signs of neuritis related to sciatic nerve. SIJs examination is produces pain on left side. Unable to assess~LUZ for SIJ pain secondary to pain. Hamstrings tests are negative~functional contraction and negative~tendinopathy both hips~(weak) On a daily basis, the following percentages reflect Yee's overall total pain: Deep hip: 80% SIJ 15%: Lateral Capsule 5% Imaging: Radiology studies which I have personally reviewed, analyzed and measured are below: XR: AP of the hip and pelvis: Performed in a good~technique Coccyx to pubic symphysis distance 3.5~cm. 0 degrees [place] Lines are preserved. Minimal~Pathological signs are seen in the Symphysis Pubis. Minimal~Pathological signs are seen at the Ischial tuberosity. ~ Specific measurements show: NSA~ LCE Sourcil~Angle Sharp's angle Lat. Cam Lat. Pincer C.Over~sign Head~Coverage % ATDmm R N 25 2 41 - - 12-2 79 N L N 18 7 43 - - 12-2 67 N Pos. wall sign ISS NAD ~~Dysplasia Comments R Negative Negative 11.2~mm + L ++ + 8.0~mm ++ Sclerosis Sup. Lat. OA Cysts Joint Space-WBZ Joint Space-Medial R Negative Negative Negative 3.6~mm 3.3~mm L Negative Negative Negative 3.4~mm 4.0~mm X Table lateral: Anterior cam lesion is not seen~on both hips. Alpha Angle: ~ Right 42~dergrees Left 46~degrees CT: Right hip: Lateral center edge angle: 25 degrees Anterior center edge angle: 62 degrees [place] acetabular version angle: 15 degrees anteverted. Cranial acetabular version angle: 0 degrees . 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 Cranial acetabular version angle: 3 degrees retroverted. Femoral neck shaft angle: 134 degrees Femoral shaft torsion angle: Medialized 28 degrees Impression and plan: Salylis a 36 y.o.~active female~suffering from symptomatic bilateral~hip pain due to Bilateral~Hip Dyplasia~causing significant disability to her~and altering her~sport and life activities. Physical examination, imaging, and her~story correspond with the diagnosis mentioned above. I explained that hip dysplasia is a condition wherein the hip joint has excessive play~and instability due to a variety of factors, including the depth and adequacy of the socket, the orientation of the femur bone, and ligament laxity around the hip joint. Dysplasia ranges in severity from borderline to citlaly, with treatment options being specific to the specific nature of the problem. Left untreated, the instability in the hip joint can cause progressive tearing of the labrum and deterioration of the surface cartilage, ultimately resulting in progressive osteoarthritis of the hip. I explained that femoroacetabular impingement (LENNOX - Cam type) arises due to a bony or soft tissue conflict between the femur (ball) and acetabulum (socket) caused by an abnormality in the shape of the femoral head and neck. Over time, repetitive impingement can result in damage to the labrum and adjacent surface cartilage within the socket, ultimately giving rise to progressive osteoarthritis of the hip. I explained that although a labral tear can be a source of pain, it is rarely the root of the problem and typically occurs secondary to an underlying abnormality in the shape and mechanics of the hip joint. I reviewed conservative treatment options for Dysplasia and LENNOX including activity modification to avoid positions of impingement or instability, physical therapy, non-steroidal anti-inflammatory medications, and various injections (corticosteroid and PRP) aimed at reducing inflammation in the hip joint or/and preventing dynamic instability and impingement. PRP injections may promote healing and reduce symptoms in certain cases but it will not repair chronically damaged tissue. Although these measures may help to buy time~and reduce current level of symptoms, they are not a definitive solution to the problem given the underlying abnormality in the shape of the hip joint. Patients who have failed conservative management and continue to experience symptoms are candidates for definitive surgical treatment, which may consist of hip arthroscopy alone or in combination with more invasive bony realignment procedures of the hip socket and/or femur called periacetabular osteotomy (REINALDO) or derotational femoral osteotomy (DFO). Hip arthroscopy typically includes treating the labrum with either repair or reconstruction of the torn labrum; as well as addressing the underlying abnormalities by restoring the normal shape to the hip joint. If the cartilage is damaged a Microfracture surgical procedure may also be necessary to help stimulate the growth of fibrocartilage. If a patient requires a labral reconstruction or a Microfracture, the initial rehabilitation from the surgery may take longer, but the terminal operations manager results are typically favorable. I reviewed the technical aspects of periacetabular osteotomy (REINALDO) including risks, benefits, and expected course of recovery. Sallyunderstands that REINALDO is an inpatient procedure carried out through two medium sized incisions on the front and back of the hip joint. The hip socket is cut, realigned, and stabilized with 2 3 internal screws. Risks include infection, bleeding, injury to nearby nerves or vessels, stiffness, persistent pain, instability, failure of bony healing, implant related complications, and venous thromboembolic disease. Rarely, revision surgery may be required to address these problems. Risks, potential complications, side effects and recovery from surgical procedure were discussed in length. We explained how this surgery is an open procedure, and though patients tend to do well in the long-term, it involves significant pain in the first 2-4 weeks post-op and a rather lengthy rehab.~Overall recovery takes approximately 6 12~months depending on the extent of damage and degree of repair. Sallyunderstands that she~will undergo hip arthroscopy 1 week prior to the REINALDO to address damage inside the hip joint. Yee~understands that hip arthroscopy and REINALDO are two separate procedures that are best performed one week apart, with the arthroscopy commencing first to "tighten up" any pathology evident in the hip joint (labral repair, etc.) and the REINALDO open procedure occurring 7-10 days later to realign the acetabulum. Yee~will review the info presented. In order to obtain more detailed information regarding the alignment, orientation, and shape of the bony hip and pelvis I will order a CT scan to be performed. The results of the CT scan, including femoral torsion and acetabular version measured values and 3D images, will aid me in deciding on the best treatment strategy and surgical pre-planning. In order to better evaluate the soft tissues and cartilage of the hip joint, I will order an MRI scan. Sallywill contact us if she~wishes to pursue further treatment in the future. Yee~is happy with this plan. I have also supplied her~with handouts, outlining the expected surgical treatment and rehab involved. I wish~Yee~all the best, ~~ John Burt, PAC History Information - Allergies/Home Medication List Allergies/Adverse Reactions: No Known Allergies Allergy (Verified 07/31/17 10:57) Home Medications: Hydrocodone/Acetaminophen [[place] 5/325 (*)] 1 - 2 tab PO DAILY PRN 07/24/17 [ Last Taken Unknown] I have personally reviewed and updated: medical history - Social History Smoking Status: Never smoked Review of Systems Review of Systems: Physical Exam Physical Exam:
[2017-08-24] MEDS ORDERED: PREGABALIN 150 MG CAP PO ONE (06:42)
[2017-08-24] MEDS ORDERED: ACETAMINOPHEN 500 MG TAB PO ONE (06:42)
[2017-08-24] MEDS ORDERED: ceFAZolin 2 GM/SWFI 2 GM/20 ML SYR IVP ONE (06:42)
[2017-08-24] MEDS ORDERED: LIDOCAINE 1% 2 ML INJ ID PRN (06:43)
[2017-08-24] MEDS ORDERED: LR 1,000 ML IV ONE (06:43)
[2017-08-24] MEDS ORDERED: EPINEPHrine 30 MG/30 ML MDV (0.1 MG/0.1 ML) ONE (07:23)
[2017-08-24] MEDS ORDERED: BUPIVACAINE 0.25% 30 ML SDV ONE (07:23)
--- NOTE | 2017-08-24 07:54 | PDANEPAE ---
ANE Past Medical History - Cardiovascular History Hx Hypertension: No Hx Arrhythmias: No Hx Chest Pain: No Hx Coronary Artery / Peripheral Vascular Disease: No Hx CHF / Valvular Disease: No Hx Palpitations: No - Pulmonary History Hx COPD: No Hx Asthma/Reactive Airway Disease: No Hx Recent Upper Respiratory Infection: No Hx Oxygen in Use at Home: No Hx Sleep Apnea: No Sleep Apnea Screening Result - Last Documented: Negative - Neurologic History Hx Cerebrovascular Accident: No Hx Seizures: No Hx Dementia: No Neurologic History Comment: migraine H/A - Endocrine History Hx Diabetes: No - Renal History Hx Renal Disorders: No - Liver History Hx Hepatic Disorders: No - Neurological & Psychiatric Hx Hx Neurological and Psychiatric Disorders: Yes Neurological / Psychiatric History Comment: scoliosis. back pain due to bilat hip pain. - Cancer History Hx Cancer: No - Congenital Disorder History Hx Congenital Disorders: No - GI History Hx Gastrointestinal Disorders: Yes Gastrointestinal History Comment: collitis 5 yrs ago - Other Health History Other Health History: hip dysplasia, labral tear. Hip impingment. - Chronic Pain History Chronic Pain: No (L hip) - Surgical History Prior Surgeries: L hip scope 03-02-17. L hip labrum sx . R hip 2015. T.LKhalif 2012 ANE Review of Systems Review of Systems: - Exercise capacity METS (RN): 4 METS ANE Patient History - Allergies Allergies/Adverse Reactions: No Known Allergies Allergy (Verified 07/31/17 10:57) - Home Medications Home Medications: Hydrocodone/Acetaminophen [[place] 5/325 (*)] 1 - 2 tab PO DAILY PRN 07/24/17 [ Last Taken 08/23/17 19:00] - NPO status NPO Since - Liquids (Date): 08/23/17 NPO Since - Liquids (Time): 21:00 NPO Since - Solids (Date): 08/23/17 NPO Since - Solids (Time): 20:00 - Smoking Hx Smoking Status: Never smoked - Family Anes Hx Family Hx Anesthesia Complications: none ANE Labs/Vital Signs - Vital Signs Blood Pressure: 108/75 Heart Rate: 79 Respiratory Rate: 16 O2 Sat (%): 96 Height: 172.72 cm Weight: 54.431 kg ANE Physical Exam - Airway Neck exam: FROM Mallampati Score: Class 1 Mouth exam: normal dental/mouth exam - Pulmonary Pulmonary: no respiratory distress - Cardiovascular Cardiovascular: regular rate and rhythym - ASA Status ASA Status: I ANE Anesthesia Plan Anesthesia Plan: general endotracheal anesthesia
[2017-08-24] MEDS ORDERED: DEXAMETHASONE 4 MG/ML VIAL ONE ×2 (07:56)
[2017-08-24] MEDS ORDERED: PROPOFOL 200 MG/20 ML VIAL ONE (07:56)
[2017-08-24] MEDS ORDERED: MIDAZOLAM 2 MG/2 ML VIAL ONE (07:56)
[2017-08-24] MEDS ORDERED: METOCLOPRAMIDE 10 MG/2 ML VIAL ONE (07:56)
[2017-08-24] MEDS ORDERED: ROCURONIUM 50 MG/5 ML VIAL ONE (07:57)
[2017-08-24] MEDS ORDERED: SUCCINYLCHOLINE CHLORIDE 200 MG/10 ML SYR IVP ONE (07:57)
[2017-08-24] MEDS ORDERED: LIDOCAINE 2% 100 MG/5 ML SYR ONE (07:57)
[2017-08-24] MEDS ORDERED: ACETAMINOPHEN 500 MG TAB PO PRN (11:05)
[2017-08-24] MEDS ORDERED: NALOXONE HCL 0.4 MG/ML INJ IVP PRN (11:05)
[2017-08-24] MEDS ORDERED: ONDANSETRON 4 MG/2 ML VIAL IVP PRN (11:05)
[2017-08-24] MEDS ORDERED: HYDROCODONE/APAP 5/325 TAB PO PRN (11:05)
[2017-08-24] MEDS ORDERED: ALBUTEROL 3 ML DEYVIAL IH PRN (11:05)
[2017-08-24] MEDS ORDERED: OXYCODONE/APAP 5/325 TAB PO PRN (11:05)
--- NOTE | 2017-08-24 11:09 | POSTANESTH ---
Post Anesthetic Evaluation Cardiovascular Status: Similar to Pre-Op Cond Respiratory Status: Similar to Pre-op Cond. Level of Consciousness/Mental Status: Can Participate in Eval, Mildly Sleepy, Arousable Pain Control: Adequate, Prn Tx Ordered Nausea/Vomiting Control: Adequate, Prn Tx Ordered Complications Possibly Related to Anesthesia: None Noted
[2017-08-24] MEDS ORDERED: fentaNYL 100 MCG/2 ML INJ ONE (11:30)
[2017-08-24] MEDS ORDERED: HYDROmorphONE/DILAUDID 1 MG/ML INJ ONE (11:30)
[2017-08-24] MEDS: fentaNYL 100 MCG/2 ML INJ IVP PRN ×2 (11:33→11:54)
[2017-08-24] MEDS: HYDROmorphONE/DILAUDID 1 MG/ML INJ IVP PRN ×2 (11:39→12:08)
[2017-08-24] MEDS ORDERED: DIAZEPAM 10 MG/2 ML SYR ONE (11:43)
[2017-08-24] MEDS: DIAZEPAM 10 MG/2 ML SYR IVP PRN ×2 (11:45→12:15)
[2017-08-24 12:23] VITALS: TEMP 97.5
[2017-08-24 12:32] VITALS: RESP 14; O2SAT 98
[2017-08-24 12:42] VITALS: BP 110/71; PULSE 67
[2017-08-24] MEDS ORDERED: OXYCODONE/APAP 5/325 TAB ONE (12:50)
== END 2017-08-24 14:04 | disposition home or self-care (01) ==
LOC: FSGY 06:24
PROVIDERS: ATTEND Orthopaedic Surgery Sports Medicine
PROC: 0SQ94ZZ Repair Right Hip Joint, Percutaneous Endoscopic Approach (ICD-10-PCS; principal; 2017-08-24 08:15)
DX: Q65.89 Other specified congenital deformities of hip (principal); M25.851 Other specified joint disorders, right hip
CPT/HCPCS: C1713; J0171; J0330; J0690; J1100; J1170; J2001; J2250; J2704; J2765; J3010

== ENCOUNTER 2017-08-31 05:24 | Inpatient (IN) | payer BC ==
--- NOTE | 2017-08-28 17:01 | PDGENHP ---
History and Physical - Chief Complaint RIGHT HIP PAIN - History of Present Illness Diagnosis: 1. ~~Bilateral~Hip Dyplasia (Right BL); Left more symptomatic 2. ~~History of bilateral hip arthroscopy 3. 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 I have enjoyed meeting her. She~lives in [place], [place]. 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 ~She~is ; she~has 4~children. ~Sally enjoys camping, fishing, and running. Yee's bilateral~hip pain (L>R)~started November 2015, with no~recalled trauma or injury, and with no~previous complaints. Sallyhas~a known history of hip dysplasia. Left hip arthroscopy: January [id number] (Dr. Borjas in [place], [place]) Right hip arthroscopy: Jul 112015 In October 2016 she had a contrast MRI of left hip which apparently showed labral tear. (We do not have this study at this time) Presentation today is of anterior, posterior bilateral~hip pain. ~The hip does~ wake her~at night and does~click and catch on her. Sitting can be uncomfortable~ for her. Sallydoes~report suffering from lower back pain episodes, history of sciolosis. Sallyhas~participated in physical therapy and has~tried other conservative measures including cortisone hip injections (worked for 20 minutes only) . She~ has not~received sufficient symptomatic improvement. Sallyhas~utilized medication for pain management, including NSAID and Vicodin. Sallyhas used medication for since the pain started. Sallyunderstands that she~has a hip and pelvis problem which should be researched and wishes to get a better understanding of her~hip status, followed by an establishment of a treatment strategy, hoping sheLaurawould be able to get back to her~well being active life. History: Past medical history: ~ scioliosis Relevant familial history: Older sister was born with hip dysplasia ~~~~~~~~~~~~~~~~~~~~~~~~~~~~~~~~~~~~Older sister with scioliosis Past surgical history: No. Surgery Anesthesia 1 Tubal ligation general 2 Hip arthroscopies x2 General Sallydenies problematic issues with general anesthesia in the past. I have reviewed, verified and agree with the past medical, surgical, family and social history. Current Medications:~currently has no medications in their medication list. ALLERGIES:~has No Known Allergies. Objective: Physical Examination: Sallyis 5~feet 7~inches tall and weighs 116~Lbs. Sallyis AAO x3; she~is well- nourished, in NAD. Skin is warm and dry. ~Breathing is non-labored. ~CV with RRR by pulse. Abdomen is soft, NTND. Currently, she~walks with a abnormal antalgic gait favoring the right side. Trendelenburg sign is positive bilaterally and proprioception is was not taken secondary to increased pain. She~presents with no~signs of joint laxity. Beightons Score: 0 She~is fit looking. ~~ Lower spine examination is negative~for sciatic or femoral nerve irritation with negative~SLR &~femoral stretch tests. Range of motion of the spine is normal~for flexion, extension, and rotations, with no~associated pain. Strength, Sensation and pulses are normal - bilaterally Ankles and knees exams are normal~and no~mal-alignment is evident. She~has~right~.5~cm short leg length discrepancy. Thigh circumference is symmetric~with intermediate~muscle atrophy~on left~side. Hip ROM (degrees): FL ER At 90~hip FL IR At 90~hip FL AB AD EX IR Neutral hip ER Neutral hip R 110 (pain) 45 (pain) 35 (pain) 40 (pain) 10 5 ~(pain) 50 30 L 110 ~(pain) 50 ~(pain) 40 (pain) 35 ~(pain) 10 5 (pain) 60 20 Specific hip and pelvis tests: Quadrant LUZ Roll Add. Longus R +++ +++ negative Negative L +++ +++ +++ Negative Glut. Med ITB Pos. Imp R Negative 5/5 strength Negative 5/5 strength Negative L +++ 4+/5 strength Negative 5/5 strength Negative Squeeze test measured normal Bony Symphysis pubis is pain free~to touch while concentric activity of the rectus abdominis, does not~produce pain at its insertion. Ilio Psos specific tests are negative for pain during cycling for both hips~ without snap bilaterally HF has no pain but is weak bilaterally Left lateral~capsule tenderness Greater trochanteric burse is pain free~on both hips. Piriformis tests: FAIR is negative, with no~local signs of neuritis related to sciatic nerve. SIJs examination is produces pain on left side. Unable to assess~LUZ for SIJ pain secondary to pain. Hamstrings tests are negative~functional contraction and negative~tendinopathy both hips~(weak) On a daily basis, the following percentages reflect Yee's overall total pain: Deep hip: 80% SIJ 15%: Lateral Capsule 5% Imaging: Radiology studies which I have personally reviewed, analyzed and measured are below: XR: AP of the hip and pelvis: Performed in a good~technique Coccyx to pubic symphysis distance 3.5~cm. 0 degrees [place] Lines are preserved. Minimal~Pathological signs are seen in the Symphysis Pubis. Minimal~Pathological signs are seen at the Ischial tuberosity. ~ Specific measurements show: NSA~ LCE Sourcil~Angle Sharp's angle Lat. Cam Lat. Pincer C.Over~sign Head~Coverage % ATDmm R N 25 2 41 - - 12-2 79 N L N 18 7 43 - - 12-2 67 N Pos. wall sign ISS NAD ~~Dysplasia Comments R Negative Negative 11.2~mm + L ++ + 8.0~mm ++ Sclerosis Sup. Lat. OA Cysts Joint Space-WBZ Joint Space-Medial R Negative Negative Negative 3.6~mm 3.3~mm L Negative Negative Negative 3.4~mm 4.0~mm X Table lateral: Anterior cam lesion is not seen~on both hips. Alpha Angle: ~ Right 42~dergrees Left 46~degrees CT: Right hip: Lateral center edge angle: 25 degrees Anterior center edge angle: 62 degrees [place] acetabular version angle: 15 degrees anteverted. Cranial acetabular version angle: 0 degrees . 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 Cranial acetabular version angle: 3 degrees retroverted. Femoral neck shaft angle: 134 degrees Femoral shaft torsion angle: Medialized 28 degrees Impression and plan: Sallyis a 37 y.o.~active female~suffering from symptomatic bilateral~hip pain due to Bilateral~Hip Dyplasia~causing significant disability to her~and altering her~sport and life activities. Physical examination, imaging, and her~story correspond with the diagnosis mentioned above. I explained that hip dysplasia is a condition wherein the hip joint has excessive play~and instability due to a variety of factors, including the depth and adequacy of the socket, the orientation of the femur bone, and ligament laxity around the hip joint. Dysplasia ranges in severity from borderline to citlaly, with treatment options being specific to the specific nature of the problem. Left untreated, the instability in the hip joint can cause progressive tearing of the labrum and deterioration of the surface cartilage, ultimately resulting in progressive osteoarthritis of the hip. I explained that femoroacetabular impingement (LENNOX - Cam type) arises due to a bony or soft tissue conflict between the femur (ball) and acetabulum (socket) caused by an abnormality in the shape of the femoral head and neck. Over time, repetitive impingement can result in damage to the labrum and adjacent surface cartilage within the socket, ultimately giving rise to progressive osteoarthritis of the hip. I explained that although a labral tear can be a source of pain, it is rarely the root of the problem and typically occurs secondary to an underlying abnormality in the shape and mechanics of the hip joint. I reviewed conservative treatment options for Dysplasia and LENNOX including activity modification to avoid positions of impingement or instability, physical therapy, non-steroidal anti-inflammatory medications, and various injections (corticosteroid and PRP) aimed at reducing inflammation in the hip joint or/and preventing dynamic instability and impingement. PRP injections may promote healing and reduce symptoms in certain cases but it will not repair chronically damaged tissue. Although these measures may help to buy time~and reduce current level of symptoms, they are not a definitive solution to the problem given the underlying abnormality in the shape of the hip joint. Patients who have failed conservative management and continue to experience symptoms are candidates for definitive surgical treatment, which may consist of hip arthroscopy alone or in combination with more invasive bony realignment procedures of the hip socket and/or femur called periacetabular osteotomy (REINALDO) or derotational femoral osteotomy (DFO). Hip arthroscopy typically includes treating the labrum with either repair or reconstruction of the torn labrum; as well as addressing the underlying abnormalities by restoring the normal shape to the hip joint. If the cartilage is damaged a Microfracture surgical procedure may also be necessary to help stimulate the growth of fibrocartilage. If a patient requires a labral reconstruction or a Microfracture, the initial rehabilitation from the surgery may take longer, but the bed bug exterminator results are typically favorable. I reviewed the technical aspects of periacetabular osteotomy (REINALDO) including risks, benefits, and expected course of recovery. Sallyunderstands that REINALDO is an inpatient procedure carried out through two medium sized incisions on the front and back of the hip joint. The hip socket is cut, realigned, and stabilized with 2 3 internal screws. Risks include infection, bleeding, injury to nearby nerves or vessels, stiffness, persistent pain, instability, failure of bony healing, implant related complications, and venous thromboembolic disease. Rarely, revision surgery may be required to address these problems. Risks, potential complications, side effects and recovery from surgical procedure were discussed in length. We explained how this surgery is an open procedure, and though patients tend to do well in the long-term, it involves significant pain in the first 2-4 weeks post-op and a rather lengthy rehab.~Overall recovery takes approximately 6 12~months depending on the extent of damage and degree of repair. Sallyunderstands that she~will undergo hip arthroscopy 1 week prior to the REINALDO to address damage inside the hip joint. Yee~understands that hip arthroscopy and REINALDO are two separate procedures that are best performed one week apart, with the arthroscopy commencing first to "tighten up" any pathology evident in the hip joint (labral repair, etc.) and the REINALDO open procedure occurring 7-10 days later to realign the acetabulum. Yee~will review the info presented. In order to obtain more detailed information regarding the alignment, orientation, and shape of the bony hip and pelvis I will order a CT scan to be performed. The results of the CT scan, including femoral torsion and acetabular version measured values and 3D images, will aid me in deciding on the best treatment strategy and surgical pre-planning. In order to better evaluate the soft tissues and cartilage of the hip joint, I will order an MRI scan. Sallywill contact us if she~wishes to pursue further treatment in the future. Yee~is happy with this plan. I have also supplied her~with handouts, outlining the expected surgical treatment and rehab involved. I wish~Yee~all the best, ~~ John Burt, PAC History Information - Allergies/Home Medication List Allergies/Adverse Reactions: No Known Allergies Allergy (Verified 07/31/17 10:57) Home Medications: Hydrocodone/Acetaminophen [[place] 5/325 (*)] 1 - 2 tab PO DAILY PRN 07/24/17 [ Last Taken 08/23/17 19:00] I have personally reviewed and updated: medical history - Social History Smoking Status: Never smoked Review of Systems Review of Systems: Physical Exam Physical Exam:
[2017-08-31] MEDS ORDERED: ACETAMINOPHEN 500 MG TAB PO ONE (05:53)
[2017-08-31] MEDS ORDERED: PREGABALIN 150 MG CAP PO ONE (05:53)
[2017-08-31] MEDS ORDERED: ceFAZolin 2 GM/SWFI 2 GM/20 ML SYR IVP ONE (05:53)
[2017-08-31] MEDS ORDERED: LR 1,000 ML IV ONE (05:55)
[2017-08-31] MEDS ORDERED: LIDOCAINE 1% 2 ML INJ ID PRN (05:55)
[2017-08-31] MEDS ORDERED: CITRATE DEXTROSE SOLN 500 ML BAG ONE ×2 (06:39→10:27)
[2017-08-31] MEDS ORDERED: MIDAZOLAM 2 MG/2 ML VIAL ONE (07:09)
[2017-08-31] MEDS ORDERED: MIDAZOLAM 2 MG/2 ML VIAL IVP ONE (07:10)
--- NOTE | 2017-08-31 07:11 | PDANEPAE ---
ANE History of Present Illness 37 year old female for right REINALDO. ANE Past Medical History - Cardiovascular History Hx Hypertension: No Hx Arrhythmias: No Hx Chest Pain: No Hx Coronary Artery / Peripheral Vascular Disease: No Hx CHF / Valvular Disease: No Hx Palpitations: No - Pulmonary History Hx COPD: No Hx Asthma/Reactive Airway Disease: No Hx Recent Upper Respiratory Infection: No Hx Sleep Apnea: No Sleep Apnea Screening Result - Last Documented: Negative - Neurologic History Hx Cerebrovascular Accident: No Hx Seizures: No Hx Dementia: No Neurologic History Comment: migraine H/A - Endocrine History Hx Diabetes: No - Renal History Hx Renal Disorders: No - Liver History Hx Hepatic Disorders: No - Neurological & Psychiatric Hx Hx Neurological and Psychiatric Disorders: Yes Neurological / Psychiatric History Comment: scoliosis. back pain due to bilat hip pain. - Cancer History Hx Cancer: No - Congenital Disorder History Hx Congenital Disorders: No - GI History Hx Gastrointestinal Disorders: Yes Gastrointestinal History Comment: collitis 5 yrs ago - Other Health History Other Health History: hip dysplasia, labral tear. Hip impingment. - Chronic Pain History Chronic Pain: No (L hip) - Surgical History Prior Surgeries: L hip scope 03-02-17. L hip labrum sx . R hip 2015. T.L. 2011 ANE Review of Systems Review of systems is: negative Review of Systems: - Exercise capacity Exercise capacity: >=4 METS METS (RN): 4 METS ANE Patient History - Allergies Allergies/Adverse Reactions: No Known Allergies Allergy (Verified 07/31/17 10:57) - Home Medications Home medications: home medication list seen and reviewed Home Medications: Hydrocodone/Acetaminophen [[place] 5/325 (*)] 1 - 2 tab PO DAILY PRN 07/24/17 [ Last Taken 08/30/17 19:00] - NPO status NPO Status: no food or drink >8 hours NPO Since - Liquids (Date): 08/30/17 NPO Since - Liquids (Time): 22:00 NPO Since - Solids (Date): 08/30/17 NPO Since - Solids (Time): 18:30 - Anes Hx Anes Hx: no prior problems - Smoking Hx Smoking Status: Never smoked Marijuana use: No - Alcohol Use Alcohol Use: Rarely - Family Anes Hx Family Anes Hx: neg - N/A Family Hx Anesthesia Complications: none ANE Labs/Vital Signs - Vital Signs Vital Signs: reviewed preoperatively; see RN documention for details Blood Pressure: 104/64 Heart Rate: 84 Respiratory Rate: 20 O2 Sat (%): 95 Height: 172.72 cm Weight: 54.431 kg ANE Physical Exam - Airway Neck exam: FROM Mallampati Score: Class 2 Mouth exam: normal dental/mouth exam - Pulmonary Pulmonary: no respiratory distress - Cardiovascular Cardiovascular: regular rate and rhythym - ASA Status ASA Status: I ANE Anesthesia Plan Anesthesia Plan: general endotracheal anesthesia, epidural (Epidural for POPC PSR) Total IV Anesthesia: No
[2017-08-31] MEDS ORDERED: fentaNYL 100 MCG/2 ML INJ ONE ×3 (07:14→13:15)
[2017-08-31] MEDS ORDERED: PROPOFOL 200 MG/20 ML VIAL ONE (07:14)
[2017-08-31] MEDS ORDERED: PROPOFOL/EMULSION 500 MG/50 ML BOTTLE IV ONE (07:14)
[2017-08-31] MEDS ORDERED: LIDOCAINE 2% 5 ML SDV ONE ×2 (07:14→12:01)
[2017-08-31] MEDS ORDERED: ROCURONIUM 50 MG/5 ML VIAL ONE ×3 (07:14→10:06)
[2017-08-31] MEDS ORDERED: TRANEXAMIC ACID 1,000 MG in NS 100 ML IV ONE (08:00)
[2017-08-31 08:29] LABS: PLATELET COUNT 231 10^3/uL (150-400)
[2017-08-31] MEDS ORDERED: ONDANSETRON 4 MG/2 ML VIAL ONE (08:53)
[2017-08-31] MEDS ORDERED: FENTANYL EP SCH ×2 (09:11→12:30)
[2017-08-31] MEDS ORDERED: NALOXONE HCL 0.4 MG/ML INJ IVP PRN ×2 (09:11→10:38)
[2017-08-31] MEDS ORDERED: SODIUM CHLORIDE EP SCH (09:11)
[2017-08-31] MEDS ORDERED: NARCOTIC DRIP BAG-TOTAL ALL TYPES EP PRN (09:11)
[2017-08-31] MEDS ORDERED: BUPIVACAINE 0.0625% EP SCH (09:11)
[2017-08-31] MEDS ORDERED: METOCLOPRAMIDE 10 MG/2 ML VIAL IVP PRN (09:11)
[2017-08-31] MEDS ORDERED: ONDANSETRON 4 MG/2 ML VIAL IVP PRN ×3 (09:12→11:57)
[2017-08-31] MEDS ORDERED: PHENYLEPHRINE HCL 100 MCG/ML SYR IVP PRN (10:38)
[2017-08-31] MEDS ORDERED: MEPERIDINE 25 MG/ML SYR IVP PRN (10:38)
[2017-08-31] MEDS ORDERED: HYDROmorphONE/DILAUDID 1 MG/ML INJ IVP PRN (10:38)
[2017-08-31] MEDS ORDERED: PROMETHAZINE HCL 25 MG/ML INJ IVP PRN (10:38)
[2017-08-31] MEDS ORDERED: LR 500 ML IV PRN (10:38)
[2017-08-31] MEDS ORDERED: SUGAMMADEX SODIUM 200 MG/2 ML VIAL IVP ONE (10:52)
[2017-08-31] MEDS ORDERED: HYDROmorphONE/DILAUDID 2 MG/ML INJ ONE (10:57)
[2017-08-31] MEDS ORDERED: MAGNESIUM HYDROXIDE 30 ML UDCUP PO PRN (11:57)
[2017-08-31] MEDS ORDERED: POLYETHYLENE GLYCOL 3350 17 GM PKT PO PRN (11:57)
[2017-08-31] MEDS ORDERED: BISACODYL 10 MG SUPP PR PRN (11:57)
[2017-08-31] MEDS ORDERED: LACTULOSE 20 GM/30 ML UDCUP PO PRN (11:57)
[2017-08-31] MEDS ORDERED: ACETAMINOPHEN 325 MG TAB PO PRN (11:57)
[2017-08-31] MEDS ORDERED: BUPIVACAINE 0.5% EP SCH (12:30)
[2017-08-31] MEDS ORDERED: NS EP SCH (12:30)
[2017-08-31] MEDS: fentaNYL 100 MCG/2 ML INJ IVP PRN ×4 (13:05→13:29)
--- NOTE | 2017-08-31 15:01 | POSTANESTH ---
Post Anesthetic Evaluation Cardiovascular Status: Normal, Stable Respiratory Status: Normal, Stable Level of Consciousness/Mental Status: Can Participate in Eval Pain Control: Adequate, Prn Tx Ordered Nausea/Vomiting Control: Adequate, Prn Tx Ordered Complications Possibly Related to Anesthesia: None Noted (Patient seen and evaluated in her hospital floor room 352. Patient with 0/10 pain without motor blockade of lower extremities. Doing well. Anesthesia contact number left on white board in patient's room. Anesthesiology will control patient's post-op pain medications while epidural is in place. Current settings of 8ml basal rate with PCEA demand dose of 5ml Q15 PRN.)
[2017-08-31] MEDS: ONDANSETRON DISINTEGRATING 4 MG TAB PO PRN (17:47)
--- NOTE | 2017-08-31 19:26 | SUROPNOTE ---
[facility] Operative Report - Surgery [facility] Diagnosis: Right 1. Hip Acetabular Dysplasia ~ Operation: Right~[place] Acetabular Osteotomy (REINALDO) Surgeon: Jay Jay Gastelum MD Vehicle Calibration Engineer:~~Jovani MCCAULEY Anesthetic: General + epidural Procedure: General anesthetic. Antibiotics given. Cell saver in use. Fluoroscopy. Phase 1: Position lateral, diagonal skin incision between ischial tuberosity and greater trochanter as for posterior hip approach. Blunt split of glut max fibers. Identification of fat pad overlying sciatic nerve. Exposure of sciatic nerve under fat pad, gently retracting it away-medially to ischial tuberosity. Exposure of subcotoloid fossa proximal to short rotators. Using osteotomes and under fluoroscopy, osteotomy of subcotoloid fossa to sciatic notch proximal to ischial spine. Closure of lateral cut. Patient is turned supine. Phase 2: Skin incision just distal to ASIS. Using diathermy the iliac spine was exposed and inguinal ligament + Sartorious were retracted medially, taking the LFCN with them, protecting it. Inner ilium was dissected from iliacus muscle bluntly , with a cob and swab. Dissection continued towards lateral superior ramus pubis. Using fluoroscopy an osteotomy of lateral superior ramus, just medial to tear drop, was performed with curved fish mouth osteotome. Phase 3: Osteotomy lines of the ilium were marked with diathermy as pre planned according to XR/CT and expected correction of acatabulum. 2 Shanz screws were drilled into central acetabular fragment, corresponding with planned correction angles, in order to mobilize central acetabular fragment after osteotomy is complete. ~Iliac osteotomy was performed with reciprocating saw and the main acetabular fragment was moved to realign weight bearing position. After confirmation of correction using fluoroscopy in AP and false profile planes, the fragment was fixed with 2 - 5.5mm ~full threaded~screws~and 1 - 4mm~~full threaded~screw. Inguinal ligament and Sartorious were attached back to ASIS through drill holes. Incision was closed according to soft tissue layers. Skin was closed with subdermal Monocryl. Final fluoro shots were obtained to confirm position/correction. After surgery Yee~moved both lower limbs and had no NV motor compromise. Specimen - none Bleeding - 600ml Complication - none Evaluation under anesthesia: IR at 90 degrees hip flexion prior to REINALDO was 45~degrees and after REINALDO was 20~ degrees. Bleedin~cc into cell-saver, 270~of blood products were returned to patient. Post op instructions: 1. Toe touch~weight bearing crutches for 4~weeks 2. Epidural analgesia for 24-48 hours 3. Continuous SCD 4. Aspirin 81 mg X1 day once Epidural is discontinued 5. Avoid hip flexion past 90 and hip External rotation. 6. PT according to my recommendations at follow up visit Kind regards, Dr. Jay Jay Gastelum .
[2017-08-31] MEDS: SENNOSIDES/DOCUSATE SODIUM TAB PO SCH (22:30)
[2017-09-01] MEDS: BUPIVACAINE 0.5% EP SCH ×4 (00:35→18:47)
[2017-09-01] MEDS: NS EP SCH ×4 (00:35→18:47)
[2017-09-01] MEDS: FENTANYL EP SCH ×4 (00:35→18:47)
--- NOTE | 2017-09-01 07:32 | POSTANESTH ---
Post Anesthetic Evaluation Cardiovascular Status: Normal, Stable Respiratory Status: Normal, Stable Level of Consciousness/Mental Status: Can Participate in Eval Pain Control: Adequate, Prn Tx Ordered Nausea/Vomiting Control: Adequate, Prn Tx Ordered Complications Possibly Related to Anesthesia: None Noted (POD #1; Patient with Continuous Lumbar Epidural Catheter. Overnight, pain well controlled. Patient reported she woke from sleep twice with mild discomfort and pressed her PCEA button with good relief obtained. At time of interview this morning, patient rates her pain as 0/10. Physical Exam: Epidural catheter still secured at 12cm at skin. Dressing clean, dry and intact. Taped tegaderm edges are not lifted or showing signs that dressing could become compromised. Patient able to plantar flex and dorsiflex both feet bilaterally. Plan: Following discussion with patient, continuous lumbar infusion decreased by 25% to 6ml/hr. Demand dosing not changed. Will evaluate patient again this evening and consider decreasing to 4ml/hr. With next decrease in basal rate, will make sure patient has both IV and oral pain medicaitons available PRN. Plan will be dictated by patient progress, but anticipate epidural removal on afternoon / evening of 09-02-2017.)
[2017-09-01] MEDS: SENNOSIDES/DOCUSATE SODIUM TAB PO SCH ×2 (08:11→21:13)
[2017-09-01] MEDS: DIAZEPAM 2 MG TAB PO PRN ×2 (09:53→16:49)
[2017-09-01] MEDS: REGARDING ANTICOAG MISC SCH (10:41)
[2017-09-01] MEDS: DC NARCS MISC SCH (10:41)
[2017-09-01] MEDS: OXYCODONE/APAP 5/325 TAB PO PRN ×3 (12:06→21:13)
--- NOTE | 2017-09-01 19:50 | SOAPPROG ---
SOAP Progress Note Assessment/Plan: Assessment: 1 day post op Right Periacetabular Osteotomy Plan: PCEA to be weaned down by Dr. Man tomorrow; transition to Oxycodone 10ng Q4hr scheduled; 5-25mg Oxycodone Q4hrs PRN Pain Percocet for now Up with PT/OT Pelvis Xray on POD#3 Home Thursday09/01/17 19:45 Subjective: Yee is doing fairly well this evening. She describes having a pain crisis in the PACU last night but this has since resolved. Her epidural was turned down to 6 from [address] Man ordered Percocet to help augment pain management. She and her would like to go home Thursday morning if that is possible. She denies any cp, no sob, no nausea. Objective: Vital Signs Temp Pulse Resp BP Pulse Ox 37.4 C 94 18 99/56 L 95 09/01/17 19:28 09/01/17 19:28 09/01/17 19:28 09/01/17 19:28 09/01/17 19:28 Laboratory Results 09/01/17 04:35 09/01/17 04:35 08/31/17 09/01/17 09/02/17 05:59 05:59 05:59 Intake Total 4665 1250 Output Total 5025 850 Balance -360 400 Well appearing in NAD Right hip: dressings clean dry intact scattered ecchymosis and edema full ROM of foot and ankle NVI distally - Pending Discharge Pending Discharge Within 48 Hours: Yes Pending Discharge Date: 09/03/17 Pending Discharge Time: 11:00 ICD10 Worksheet Patient Problems: Problems Problem Status Onset Post-op pain Acute
[2017-09-02] MEDS: BUPIVACAINE 0.5% EP SCH ×5 (00:42→23:32)
[2017-09-02] MEDS: FENTANYL EP SCH ×5 (00:42→23:32)
[2017-09-02] MEDS: NS EP SCH ×5 (00:42→23:32)
[2017-09-02] MEDS: OXYCODONE/APAP 5/325 TAB PO PRN ×2 (00:50→06:37)
[2017-09-02] MEDS: DIAZEPAM 2 MG TAB PO PRN ×4 (00:50→23:38)
--- NOTE | 2017-09-02 07:28 | SOAPPROG ---
SOAP Progress Note Assessment/Plan: Assessment: POD# 2 s/p R REINALDO and doing well overall Plan: - continue to wean epidural; goal to discontinue today vs tomorrow am with transition to scheduled oxycodone and prn oxycodone for breakthrough - d.c be 2 hrs after epidural removed - OOB with PT/OT and RNs (at least to edge of bed today and OOB when epidural discontinued - encourage IS - regular diet with strict bowel regimen, encourage fluid intake - XR tomorrow - anticipate d.c to home on Thursday09/02/17 07:20 09/02/17 07:27 Subjective: Slept well. No cp or sob. no n/v. passing flatus. pain controlled overnight. no n/t. Objective: Vital Signs Temp Pulse Resp BP Pulse Ox 37.1 C 80 16 92/58 L 95 09/02/17 06:00 09/02/17 06:00 09/02/17 06:00 09/02/17 06:00 09/02/17 06:00 Laboratory Results 09/01/17 04:35 09/01/17 04:35 09/01/17 09/02/17 09/03/17 05:59 05:59 05:59 Intake Total 4665 1950 Output Total 5025 2950 Balance -360 -1000 GEN - NAD, AO ABD - soft, nt, nd BLE - dress clean, dry, intact; appropriate surrounding edema and ecchymosis - 5/5 dorsi/plantar flexion, thigh adduction - SILT L5 - S1 - BCR, WWP ICD10 Worksheet Patient Problems: Problems Problem Status Onset Post-op pain Acute
[2017-09-02] MEDS ORDERED: oxyCODONE IR 5 MG TAB PO PRN (07:33)
--- NOTE | 2017-09-02 07:48 | POSTANESTH ---
Post Anesthetic Evaluation Cardiovascular Status: Normal, Stable Respiratory Status: Normal, Stable Level of Consciousness/Mental Status: Can Participate in Eval Pain Control: Adequate, Prn Tx Ordered Nausea/Vomiting Control: Adequate, Prn Tx Ordered Complications Possibly Related to Anesthesia: None Noted (Patient subjectively doing well overnight. Pain rated at 3/10 this morning. Physical exam displayed mild hip flexor weakness (to be expected) but 4/5 plantar and dorsiflexion of bilateral feet. Visual inspection of patient's back reveals epidural catheter still in original position (12cm at skin), tegaderm dressing clean w/ no pooling of local anesthetic under the dressing. Pain managment plan discussed with patient and surgical team (Dr. Boyer's P.A. and Fellow). Today: 1) Decrease continuous epidural basal infusion from 6ml/hr to 4ml/hr ( done at 7am) 2) Discontinue percocet. 3) Start Oxycodone PO 10mg Q4HR scheduled 4) Start Oxycodone PO 5-15mg Q4HR PRN 5) Start Hydromorphone IV 0.2- 0.4mg Q2Hr PRN Tomorrow: Plan to turn off epidural in the morning, but leave epidural in place during daylight hours. Continue PO meds. Evaluate in the evening and consider removal of epidural tomorrow evening. Current estimated discharge date of 09/04/2017 per discussion with primary service.)
[2017-09-02] MEDS: REGARDING ANTICOAG MISC SCH (10:00)
[2017-09-02] MEDS: DC NARCS MISC SCH (10:00)
[2017-09-02] MEDS: SENNOSIDES/DOCUSATE SODIUM TAB PO SCH ×2 (10:46→20:24)
[2017-09-02] MEDS: oxyCODONE IR 5 MG TAB PO PRN ×4 (10:50→20:24)
[2017-09-02] MEDS: ASPIRIN EC 81 MG TAB PO SCH (12:15)
[2017-09-02] MEDS: ONDANSETRON DISINTEGRATING 4 MG TAB PO PRN (12:21)
[2017-09-02] MEDS: HYDROmorphONE/DILAUDID 1 MG/ML INJ IVP PRN ×2 (13:28→21:21)
[2017-09-02] MEDS: oxyCODONE IR 5 MG TAB PO SCH ×2 (19:14→23:37)
[2017-09-02] MEDS ORDERED: HYDROmorphONE/DILAUDID 2 MG/ML INJ IVP PRN (22:00)
[2017-09-03] MEDS: oxyCODONE IR 5 MG TAB PO SCH ×4 (03:53→15:05)
[2017-09-03] MEDS: oxyCODONE IR 5 MG TAB PO PRN ×3 (06:22→17:43)
[2017-09-03] MEDS: BUPIVACAINE 0.5% EP SCH (06:22)
[2017-09-03] MEDS: NS EP SCH (06:22)
[2017-09-03] MEDS: FENTANYL EP SCH (06:22)
[2017-09-03] MEDS: SENNOSIDES/DOCUSATE SODIUM TAB PO SCH (07:52)
[2017-09-03] MEDS: ASPIRIN EC 81 MG TAB PO SCH (07:53)
--- NOTE | 2017-09-03 08:31 | POSTANESTH ---
Post Anesthetic Evaluation Cardiovascular Status: Normal, Stable, Similar to Pre-Op Cond Respiratory Status: Normal, Stable, Similar to Pre-op Cond. Level of Consciousness/Mental Status: Can Participate in Eval, Alert and Oriented Pain Control: Adequate, Prn Tx Ordered (POD #3 with lumbar epidural for post-op pain control. This morning, patient reported she did well overnight. Did have one episode of significant pain yesterday evening that required a single dose of IV hydromorphone in addition to her PO regimen. Keeping with pain management plan, Epidural infusion was turned off this morning at 7am, but catheter remains in place. Will evaluate throughout today. If pain managed today with available PO regimen, plan for removal of epidural catheter this evening. Discussion with primary service has scheduled discharge from hospital on Thursday09-04-2017.) Nausea/Vomiting Control: Adequate, Prn Tx Ordered Complications Possibly Related to Anesthesia: None Noted
[2017-09-03] MEDS: DC NARCS MISC SCH (09:51)
[2017-09-03] MEDS: REGARDING ANTICOAG MISC SCH (09:51)
[2017-09-03 11:55] VITALS: RESP 16; TEMP 98.6
[2017-09-03] MEDS: ONDANSETRON DISINTEGRATING 4 MG TAB PO PRN (13:23)
[2017-09-03] MEDS ORDERED: HYDROmorphONE/DILAUDID 1 MG/ML INJ IVP PRN (16:00)
[2017-09-03 16:03] VITALS: BP 105/71; PULSE 89; O2SAT 99
--- NOTE | 2017-09-03 17:43 | POSTANESTH ---
Post Anesthetic Evaluation Cardiovascular Status: Normal, Stable, Similar to Pre-Op Cond Respiratory Status: Normal, Stable, Similar to Pre-op Cond. Level of Consciousness/Mental Status: Can Participate in Eval, Alert and Oriented Pain Control: Adequate, Prn Tx Ordered Nausea/Vomiting Control: Adequate, Prn Tx Ordered Complications Possibly Related to Anesthesia: None Noted (Follow-up visit from this morning. Epidural catheter infusion turned off this morning around 7am. Patient states she had a great day. Pain well managed with PO regimen. She was able to ambulate with a walker today. As a result, Epidural Catheter was removed this evening just prior to the documentation of this note. Catheter removed with tip intact. Inspection of patient's back displayed no signs of erythema. Nursing staff planned to remove be catheter immediately following removal of epidural catheter. Patient expressed gratitude for pain managment care from anesthesia team while at [facility]. Dr. Gastelum's team given update of these events.)
--- NOTE | 2017-09-04 10:58 | ASDISCHSUM ---
Discharge Information Plan Status:Home with No Needs Medically Cleared to Leave: Discharge Date:09/03/2017 06:55 PM CM D/C Disposition:Home, Routine, Self-Care ADT D/C Disposition:Home, Routine, Self-Care Projected Discharge Date:09/03/2017 06:55 PM Transportation at D/C: Discharge Delay Reason: Follow-Up Date:09/03/2017 06:55 PM Discharge Slot: Final Diagnosis: Placement Information Patient Contact Information Contact Name:BLAYNE Relationship: Address:[address] Work Phone: City:[place] Alternate Phone: [facility]/Zip Code:[place] [address] Email: Financial Information Financial Class:HMO and PPO Plans Primary Plan Desc:[employer] Primary Plan Number:[id number] Secondary Plan Desc: Secondary Plan Number: Assessment Information [facility] CM Progress Note CM Note CM Note Notes: Pt was initially assessed by this CM and believed note was entered in [employer] which note does not appear now. Pt w 4 children, is from [place]. Therapies clear pt who is medically stable for d/c. No CM d/ needs identified. Date Signed: 09/04/2017 10:55 AM Electronically Signed By:KELSEY Yates Intervention Information
== END 2017-09-03 18:55 | disposition home or self-care (01) | DRG 941 ==
LOC: F3N 05:24
PROVIDERS: ADMIT Orthopaedic Surgery Sports Medicine; ATTEND Orthopaedic Surgery Sports Medicine
PROC: 0Q840ZZ Division of Right Acetabulum, Open Approach (ICD-10-PCS; principal; 2017-08-31 07:15)
DX: G89.18 Other acute postprocedural pain (principal); Q65.89 Other specified congenital deformities of hip; M25.852 Other specified joint disorders, left hip
CPT/HCPCS: 97116-GP; 97161-GP; 97165-GO; 97530-GP; 97535-GO; C1713; J0690; J1170; J2250; J2370; J2405; J2704; J3010; J7060